=== PATIENT | female | born 1980 | race African-American/Black ===

== ENCOUNTER 2016-07-19 13:59 | Emergency (ER) | payer MEDICAID ==
[~2016-07-19] VITALS: Ht 165.1 cm; Wt 98.0 kg
[2016-07-19 14:02] VITALS: BP 149/79; PULSE 101; RESP 18; TEMP 98.2; O2SAT 97
== END 2016-07-19 18:50 | disposition left against medical advice (07) ==
LOC: NED 13:59
DX: R10.9 Unspecified abdominal pain (principal)
CPT/HCPCS: 99281

== ENCOUNTER 2016-09-06 15:49 | Emergency (ER) | payer MEDICAID ==
[~2016-09-06] VITALS: Ht 165.1 cm; Wt 97.7 kg
[2016-09-06 15:50] VITALS: BP 142/82; PULSE 84; RESP 20; TEMP 97.7; O2SAT 97
[2016-09-06] MEDS ORDERED: METO25TA3 PO (17:00)
[2016-09-06] MEDS ORDERED: PREN29TA PO (17:00)
--- NOTE | 2016-09-06 17:22 | PD ---
HPI Chief Complaint: Abdominal Pain Time Seen by Provider: 17:19 Travel History International Travel<30 days: No Contact w/Intl Traveler<30days: No Traveled to known affect area: No History of Present Illness HPI 36 year-old female history of hypertension, gastric bypass in 2008, presents to emergency department for evaluation right upper quadrant pain. Patient is approximately 11 weeks . She is followed by Dr. lAeman. Began having right upper quadrant pain yesterday with significant nausea and frequent vomiting. There is no mike red blood or coffee-ground emesis. Patient does have history of cholelithiasis. Denies any lower abdominal pain. No abdominal cramping or vaginal bleeding. She has had no fever or chills. No other symptoms to report. PFSH Past Medical History Cardiovascular Problems: Yes (HTN ) Diminished Hearing: No Gastrointestinal Disorders: No Hypertension: Yes (history ) Implanted Vascular Access Dvce: No Respiratory: Yes Immunizations Current: Yes Sleep Apnea: Yes (SLEEP APNEA) Tetanus Vaccination: < 5 Years ?: LMP: 06/21/16 : 1 Para: 1 Past Surgical History Abdominal Surgery: Yes (GASTRIC BYPASS-NOVEMBER 2008) Section: Yes (X 1) Social History Alcohol Use: No Tobacco Use: No Substance Use: No Allergies-Medications (Allergen,Severity, Reaction): Coded Allergies: Aspirin (Verified Adverse Reaction, Severe, CAN'T TAKE BECAUSE GASTRIC BYPASS, 09/06/16) STATES SHE CAN'T TAKE ASPIRIN SINCE SHE HAD GASTRIC BYPASS IN 2008. *MDRO Multi-Drug Resistant Organism (Verified Adverse Reaction, Unknown, ) MRSA Reported Meds & Prescriptions Reported Meds & Active Scripts Active Reported Metoprolol Tartrate 25 Mg Tab 25 Mg PO DAILY Plus Iron 29-1 mg ( Vit-Iron Carbonyl) 1 Tab Tab 1 Tab PO DAILY Review of Systems Except as stated in HPI: all other systems reviewed are Neg Physical Exam Narrative GENERAL: Well-nourished female patient, ambulatory and in no acute distress SKIN: Warm and dry. HEAD: Atraumatic. Normocephalic. EYES: Pupils equal and round. No scleral icterus. No injection or drainage. ENT: No nasal bleeding or discharge. Mucous membranes pink and moist. NECK: Trachea midline. No JVD. CARDIOVASCULAR: Regular rate and rhythm. No murmur appreciated. RESPIRATORY: No accessory muscle use. Clear to auscultation. Breath sounds equal bilaterally. GASTROINTESTINAL: Abdomen soft, nondistended. Right upper quadrant and epigastric tenderness to palpation. Hepatic and splenic margins not palpable. MUSCULOSKELETAL: No obvious deformities. No clubbing. No cyanosis. No edema. NEUROLOGICAL: Awake and alert. No obvious cranial nerve deficits. Motor grossly within normal limits. Normal speech. PSYCHIATRIC: Appropriate mood and affect; insight and judgment normal. Data Data Last Documented VS Vital Signs Date Time Temp Pulse Resp B/P Pulse Ox O2 Delivery O2 Flow Rate FiO2 09/06/16 17:20 18 09/06/16 15:50 97.7 84 142/82 97 Room Air Orders Beta Hcg (Quant/Titer) (09/06/16 17:14) Complete Blood Count With Diff (09/06/16 17:14) Comprehensive Metabolic Panel (09/06/16 17:14) Lipase (09/06/16 17:14) Prothrombin Time / Inr (Pt) (09/06/16 17:14) Act Partial Throm Time (Ptt) (09/06/16 17:14) Urinalysis - C+S If Indicated (09/06/16 17:14) Us Abdomen Gallbladder (09/06/16 ) Labs Laboratory Tests Test 09/06/16 09/06/16 17:20 17:30 Urine Color LIGHT-YELLOW Urine Turbidity CLEAR Urine pH 5.5 Urine Specific [place] 1.013 Urine Protein NEG mg/dL Urine Glucose (UA) NEG mg/dL Urine Ketones NEG mg/dL Urine Occult Blood MOD Urine Nitrite NEG Urine Bilirubin NEG Urine Urobilinogen LESS THAN 2.0 MG/DL Urine Leukocyte Esterase NEG Urine RBC 1 /hpf Urine WBC 1 /hpf Urine Squamous Epithelial 3 /hpf Cells Urine Bacteria RARE /hpf Urine Mucus FEW /lpf Microscopic Urinalysis Comment CULT NOT INDICATED White Blood Count 8.1 TH/MM3 Red Blood Count 4.97 MIL/MM3 Hemoglobin 12.3 GM/DL Hematocrit 36.4 % Mean Corpuscular Volume 73.2 FL Mean Corpuscular Hemoglobin 24.7 PG Mean Corpuscular Hemoglobin 33.7 % Concent Red Cell Distribution Width 17.3 % Platelet Count 182 TH/MM3 Mean Platelet Volume 8.7 FL Neutrophils (%) (Auto) 66.5 % Lymphocytes (%) (Auto) 23.0 % Monocytes (%) (Auto) 9.1 % Eosinophils (%) (Auto) 0.9 % Basophils (%) (Auto) 0.5 % Neutrophils # (Auto) 5.4 TH/MM3 Lymphocytes # (Auto) 1.9 TH/MM3 Monocytes # (Auto) 0.7 TH/MM3 Eosinophils # (Auto) 0.1 TH/MM3 Basophils # (Auto) 0.0 TH/MM3 CBC Comment AUTO DIFF Differential Comment AUTO DIFF CONFIRMED Prothrombin Time 10.1 SEC Prothromb Time International 0.9 RATIO Ratio Activated Partial 24.0 SEC Thromboplast Time Sodium Level 137 MEQ/L Potassium Level 4.0 MEQ/L Chloride Level 106 MEQ/L Carbon Dioxide Level 21.7 MEQ/L Anion Gap 9 MEQ/L Blood Urea Nitrogen 12 MG/DL Creatinine 0.83 MG/DL Estimat Glomerular Filtration 94 ML/MIN Rate Random Glucose 93 MG/DL Calcium Level 8.6 MG/DL Total Bilirubin LESS THAN 0.1 MG/DL Aspartate Amino Transf 21 U/L (AST/SGOT) Alanine Aminotransferase 39 U/L (ALT/SGPT) Alkaline Phosphatase 73 U/L Total Protein 7.5 GM/DL Albumin 3.3 GM/DL Lipase 178 U/L Human Chorionic Gonadotropin, 12220 MIU/ML Quant MDM Medical Decision Making Medical Screen Exam Complete: Yes Emergency Medical Condition: Yes Medical Record Reviewed: Yes Differential Diagnosis Cholecystitis versus cholelithiasis versus biliary colic versus muscle strain versus spasm versus gastritis Narrative Course 36 year-old female presents to emergency department for evaluation. Workup was initiated in triage. Once a medical bed becomes available, patient will be transferred and care assumed by the provider. Ultrasound was done out in triage. Condition: Stable Edel Olivarez Sep 06, 2016 17:22
[2016-09-06 17:39] LABS: AUTOMATED NEUTROPHIL # 5.4 TH/MM3 (1.8-7.7); BASOPHIL % 0.5 % (0.0-2.0); EOSINOPHIL # 0.1 TH/MM3 (0-0.4); EOSINOPHIL % 0.9 % (0.0-4.0); HEMATOCRIT 36.4 % (35.0-46.0); LYMPHOCYTE # 1.9 TH/MM3 (1.0-4.8); MEAN CELL VOLUME 73.2 FL (80.0-100.0); MEAN CORPUSCULAR HEMOGLOBIN 24.7 PG (27.0-34.0); MEAN CORPUSCULAR HGB CONC 33.7 % (32.0-36.0); MONO % 9.1 % (0.0-8.0); NEUT % 66.5 % (16.0-70.0); PLATELET COUNT 182 TH/MM3 (150-450); RED BLOOD COUNT 4.97 MIL/MM3 (4.00-5.30); RED CELL DISTRIBUTION WIDTH 17.3 % (11.6-17.2); WHITE BLOOD COUNT 8.1 TH/MM3 (4.0-11.0)
[2016-09-06 17:44] LABS: HEMO FLAGS AUTO DIFF
[2016-09-06 17:51] LABS: BACTERIA, URINE RARE /hpf; BLOOD, URINE MOD (NEG); GLUCOSE,URINE NEG (NEG); KETONE, URINE NEG (NEG); MUCUS URINE FEW /lpf (OCC); NITRITE,URINE NEG (NEG); PH, URINE 5.5 (5.0-8.5); SQUAMOUS EPITHELIAL CELL URINE 3 /hpf (0-5); URINE COLOR LIGHT-YELLOW (YELLW/STRAW)
[2016-09-06 17:52] LABS: COMMENT (UR) CULT NOT INDICATED; CULTURE IF INDICATED CULT NOT INDICATED
[2016-09-06 17:54] LABS: INTERNATIONAL NORMALIZED RATIO 0.9 RATIO; PROTHROMBIN TIME - PATIENT 10.1 SEC (9.8-11.6)
[2016-09-06 18:02] LABS: ANION GAP 9 MEQ/L (5-15); AST (GOT) 21 U/L (15-37); BICARBONATE 21.7 MEQ/L (21.0-32.0); BLOOD UREA NITROGEN 12 MG/DL (7-18); CHLORIDE 106 MEQ/L (98-107); GLOMERULAR FILTRATION RATE 94 ML/MIN (>89); SODIUM (NA) 137 MEQ/L (136-145)
[2016-09-06 18:19] LABS: ALKALINE PHOSPHATASE 73 U/L (45-117); ALT (GPT) 39 U/L (10-53); BETA HCG QUANT 62128 MIU/ML (0-5); TOTAL BILIRUBIN ADULT LESS THAN 0.1 MG/DL (0.2-1.0)
[2016-09-06 18:39] LABS: SCAN/DIFF AUTO DIFF CONFIRMED
[2016-09-06] MEDS ORDERED: ONDANSETRON HCL 4 MG/2 ML VIAL IV PUSH ONE (19:15)
[2016-09-06] MEDS ORDERED: SODIUM CHLOR 0.9% 1000 ML INJ 1,000 ML IV ONE (19:15)
--- NOTE | 2016-09-06 19:16 | RADRPT ---
EXAM DATE/TIME: 09/06/2016 18:08 [facility] COMPARISON: No previous studies available for comparison. INDICATIONS : Right upper quadrant pain. MEDICAL HISTORY : Hypertension. . SURGICAL HISTORY : Gastric bypass. ENCOUNTER: Initial ACUITY: > 1 year PAIN SCORE: 7/10 LOCATION: Right upper quadrant MEASUREMENTS: LIVER: 17.7 cm length COMMON DUCT: 6 mm RIGHT KIDNEY: 10.7 x 5.2 x 6.4 cm FINDINGS: LIVER: Upper limits of normal size and slightly increased echotexture. No focal hepatic lesions seen. No int rahepatic biliary distention. There is normal flow velocity and direction in the main portal vein. COMMON DUCT: No intraluminal mass or stone visualized. GALLBLADDER: Innumerable tiny, gravel-like stones are seen dependently within the gallbladder lumen. No gallbladde r wall thickening or pericholecystic fluid. PANCREAS: The visualized portions are within normal limits. RIGHT KIDNEY: There is a 13 mm upper pole cyst and a suspected 14 mm nonobstructing upper pole stone. CONCLUSION: 1. Cholelithiasis; innumerable tiny gravel-like stones within the gallbladder without evidence of cho lecystitis. No perceptible duct stone. No ductal dilatation. 2. Upper limits of normal size liver with mild fatty infiltration. 3. Small cyst of the right kidney and a possible nonobstructing stone of the right kidney. Kenton Harper MD on September 06, 2016 at 19:12 Board Certified Radiologist. This report was verified electronically.
--- NOTE | 2016-09-06 19:16 | PD ---
Physical Exam Date Seen by Provider: Sep 06, 2016 Time Seen by Provider: 19:13 Narrative The patient is a 36-year-old Carlie female who was initially evaluated by the mid-level provider. Please refer to the initial history, physical, diagnostic evaluation, and treatment modality plan. Data Data Last Documented VS Vital Signs Date Time Temp Pulse Resp B/P Pulse Ox O2 Delivery O2 Flow Rate FiO2 09/06/16 17:20 18 09/06/16 15:50 97.7 84 142/82 97 Room Air Orders Beta Hcg (Quant/Titer) (09/06/16 17:14) Complete Blood Count With Diff (09/06/16 17:14) Comprehensive Metabolic Panel (09/06/16 17:14) Lipase (09/06/16 17:14) Prothrombin Time / Inr (Pt) (09/06/16 17:14) Act Partial Throm Time (Ptt) (09/06/16 17:14) Urinalysis - C+S If Indicated (09/06/16 17:14) Us Abdomen Gallbladder (09/06/16 ) Sodium Chlor 0.9% 1000 Ml Inj (Ns 1000 M (09/06/16 19:15) Ondansetron Inj (Zofran Inj) (09/06/16 19:15) Ed Poc Ultrasound (09/06/16 ) Us Pelvis (Ques Pr/Ect)W Trans (09/06/16 ) Labs Laboratory Tests Test 09/06/16 09/06/16 17:20 17:30 Urine Color LIGHT-YELLOW Urine Turbidity CLEAR Urine pH 5.5 Urine Specific [place] 1.013 Urine Protein NEG mg/dL Urine Glucose (UA) NEG mg/dL Urine Ketones NEG mg/dL Urine Occult Blood MOD Urine Nitrite NEG Urine Bilirubin NEG Urine Urobilinogen LESS THAN 2.0 MG/DL Urine Leukocyte Esterase NEG Urine RBC 1 /hpf Urine WBC 1 /hpf Urine Squamous Epithelial 3 /hpf Cells Urine Bacteria RARE /hpf Urine Mucus FEW /lpf Microscopic Urinalysis Comment CULT NOT INDICATED White Blood Count 8.1 TH/MM3 Red Blood Count 4.97 MIL/MM3 Hemoglobin 12.3 GM/DL Hematocrit 36.4 % Mean Corpuscular Volume 73.2 FL Mean Corpuscular Hemoglobin 24.7 PG Mean Corpuscular Hemoglobin 33.7 % Concent Red Cell Distribution Width 17.3 % Platelet Count 182 TH/MM3 Mean Platelet Volume 8.7 FL Neutrophils (%) (Auto) 66.5 % Lymphocytes (%) (Auto) 23.0 % Monocytes (%) (Auto) 9.1 % Eosinophils (%) (Auto) 0.9 % Basophils (%) (Auto) 0.5 % Neutrophils # (Auto) 5.4 TH/MM3 Lymphocytes # (Auto) 1.9 TH/MM3 Monocytes # (Auto) 0.7 TH/MM3 Eosinophils # (Auto) 0.1 TH/MM3 Basophils # (Auto) 0.0 TH/MM3 CBC Comment AUTO DIFF Differential Comment AUTO DIFF CONFIRMED Prothrombin Time 10.1 SEC Prothromb Time International 0.9 RATIO Ratio Activated Partial 24.0 SEC Thromboplast Time Sodium Level 137 MEQ/L Potassium Level 4.0 MEQ/L Chloride Level 106 MEQ/L Carbon Dioxide Level 21.7 MEQ/L Anion Gap 9 MEQ/L Blood Urea Nitrogen 12 MG/DL Creatinine 0.83 MG/DL Estimat Glomerular Filtration 94 ML/MIN Rate Random Glucose 93 MG/DL Calcium Level 8.6 MG/DL Total Bilirubin LESS THAN 0.1 MG/DL Aspartate Amino Transf 21 U/L (AST/SGOT) Alanine Aminotransferase 39 U/L (ALT/SGPT) Alkaline Phosphatase 73 U/L Total Protein 7.5 GM/DL Albumin 3.3 GM/DL Lipase 178 U/L Human Chorionic Gonadotropin, 454[address] MIU/ML Quant MDM Medical Record Reviewed: Yes Supervised Visit with ALBAN: Yes Interpretation(s) Laboratory Tests Test 09/06/16 09/06/16 17:20 17:30 Urine Color LIGHT-YELLOW Urine Turbidity CLEAR Urine pH 5.5 Urine Specific [place] 1.013 Urine Protein NEG mg/dL Urine Glucose (UA) NEG mg/dL Urine Ketones NEG mg/dL Urine Occult Blood MOD Urine Nitrite NEG Urine Bilirubin NEG Urine Urobilinogen LESS THAN 2.0 MG/DL Urine Leukocyte Esterase NEG Urine RBC 1 /hpf Urine WBC 1 /hpf Urine Squamous Epithelial 3 /hpf Cells Urine Bacteria RARE /hpf Urine Mucus FEW /lpf Microscopic Urinalysis Comment CULT NOT INDICATED White Blood Count 8.1 TH/MM3 Red Blood Count 4.97 MIL/MM3 Hemoglobin 12.3 GM/DL Hematocrit 36.4 % Mean Corpuscular Volume 73.2 FL Mean Corpuscular Hemoglobin 24.7 PG Mean Corpuscular Hemoglobin 33.7 % Concent Red Cell Distribution Width 17.3 % Platelet Count 182 TH/MM3 Mean Platelet Volume 8.7 FL Neutrophils (%) (Auto) 66.5 % Lymphocytes (%) (Auto) 23.0 % Monocytes (%) (Auto) 9.1 % Eosinophils (%) (Auto) 0.9 % Basophils (%) (Auto) 0.5 % Neutrophils # (Auto) 5.4 TH/MM3 Lymphocytes # (Auto) 1.9 TH/MM3 Monocytes # (Auto) 0.7 TH/MM3 Eosinophils # (Auto) 0.1 TH/MM3 Basophils # (Auto) 0.0 TH/MM3 CBC Comment AUTO DIFF Differential Comment AUTO DIFF CONFIRMED Prothrombin Time 10.1 SEC Prothromb Time International 0.9 RATIO Ratio Activated Partial 24.0 SEC Thromboplast Time Sodium Level 137 MEQ/L Potassium Level 4.0 MEQ/L Chloride Level 106 MEQ/L Carbon Dioxide Level 21.7 MEQ/L Anion Gap 9 MEQ/L Blood Urea Nitrogen 12 MG/DL Creatinine 0.83 MG/DL Estimat Glomerular Filtration 94 ML/MIN Rate Random Glucose 93 MG/DL Calcium Level 8.6 MG/DL Total Bilirubin LESS THAN 0.1 MG/DL Aspartate Amino Transf 21 U/L (AST/SGOT) Alanine Aminotransferase 39 U/L (ALT/SGPT) Alkaline Phosphatase 73 U/L Total Protein 7.5 GM/DL Albumin 3.3 GM/DL Lipase 178 U/L Human Chorionic Gonadotropin, 178[address] MIU/ML Quant Last Impressions Pelvis Ultrasound 09/06/16 0000 Signed Impressions: Service Date/Time: Tuesday, September 06, 2016 20:48 - CONCLUSION: Single, viable intrauterine as above. No acute complication demonstrated. Kenton Harper MD Gall Bladder Ultrasound 09/06/16 0000 Signed Impressions: Service Date/Time: Tuesday, September 06, 2016 18:08 - CONCLUSION: 1. Cholelithiasis; innumerable tiny gravel-like stones within the gallbladder without evidence of cholecystitis. No perceptible duct stone. No ductal dilatation. 2. Upper limits of normal size liver with mild fatty infiltration. 3. Small cyst of the right kidney and a possible nonobstructing stone of the right kidney. Kenton Harper MD Differential Diagnosis Differential diagnosis includes acute cholecystitis, biliary colic, choledocholithiasis, pancreatitis, gastritis, peptic ulcer disease, hyperemesis gravidarum. Narrative Course I, Dr. Bledsoe, have reviewed the advance practice practitioner's documentation and am in agreement, met with the patient face to face, made the diagnosis, and the medical decision making was done by me. *My assessment and Findings: 36-year-old Car[place] female was initially evaluated by the mid-level provider. Please refer to the initial history, physical, diagnostic evaluation, treatment modality plan. The patient is , currently living weeks , or any evaluated by her cask maker, Dr. Aleman. The patient notes her last several days she's had right upper quadrant and epigastric abdominal pain with nausea and vomiting, dry heaves. The patient does have a history of cholelithiasis. The patient does complain of postprandial symptoms and reflux type symptoms. She denies any lower abdominal pain, dysuria, frequent, urgency, vaginal discharge, or vaginal bleeding. The patient did have postcoital vaginal spotting 3 weeks ago, was advised that was normal per her physician. She denies any lower abdominal symptoms currently. The patient had laboratory evaluation was unremarkable. The patient was administered IV fluids and Zofran, declined pain medication secondary to . Ultrasound was ordered by the previous mid-level provider to evaluate for possible acute cholecystitis. The patient's white count is unremarkable. LFTs and lipase are normal. UA reveals blood, otherwise unremarkable. I did review the patient's EMR, she had blood work performed on August 14, 2010 which revealed she has a positive, therefore, no indication for RhoGAM. Ultrasound reveals cholelithiasis, no evidence for acute cholecystitis. However, the patient then went to use the restroom and when she wiped she felt some lower abdominal cramping and pain. Therefore, bedside ultrasound was performed which reveals IUP, however, is unable to visualize heart tones on bedside ultrasound secondary to bowel interference. Therefore, the patient requested a formal ultrasound. Formal ultrasound to evaluate for viability was obtained. Formal ultrasound reveals IUP with positive heart is. The patient is stable for outpatient follow-up. I will prescribe Zofran as needed. She is advised to follow-up with her primary physician and/or cask maker if symptoms persist she may have biliary colic. Diagnosis Primary Impression: Abdominal pain during Qualified Code: O26.891 - Abdominal pain during , first trimester Additional Impression: Cholelithiasis affecting in first trimester, antepartum Patient Instructions: General Instructions Additional Instruction: Please provide a patient a copy of her labs and ultrasound results at discharge. Zofran as directed. Follow-up with her primary physician and cask maker. Return if symptoms worsen or progress. Med/Other Pt SpecificInfo: Prescription(s) given Scripts Ondansetron Odt (Zofran Odt)4 Mg Tab4 Mg SL Q6HR PRN (Nausea/Vomiting) #10 TAB Ref 0 Prov:Hank Bledsoe MD 09/06/16 Disposition: 01 DISCHARGE HOME Condition: Stable Hank Bledsoe MD Sep 06, 2016 19:16
--- NOTE | 2016-09-06 21:43 | RADRPT ---
EXAM DATE/TIME: 09/06/2016 20:48 [facility] COMPARISON: No previous studies available for comparison. INDICATIONS : Pelvic pain. LAB(S): Beta-hC MEDICAL HISTORY : . Hypertension. SURGICAL HISTORY : Gastric bypass. ENCOUNTER: Initial ACUITY: 1 day PAIN SCORE: 5/10 LOCATION: Bilateral pelvis MEASUREMENTS: UTERUS: 13.0 x 7.3 x 8.0 cm ENDOMETRIAL STRIPE: >20 mm RIGHT OVARY: 3.7 x 2.1 x 1.3 cm LEFT OVARY: not visualized FINDINGS: UTERUS: Gestational sac, yolk sac and pole seen within the uterine cavity. [place]-rump length 4.77 cm wh ich corresponds to a gestational age of 11 weeks 4 days. heart tones are demonstrated. RIGHT OVARY: Ovary contains no mass or significant cystic lesion. LEFT OVARY: Ovary contains no mass or significant cystic lesion. MISCELLANEOUS: No free fluid. CONCLUSION: Single, viable intrauterine as above. No acute complication demonstrated. Kenton Harper MD on September 06, 2016 at 21:41 Board Certified Radiologist. This report was verified electronically.
[2016-09-06] MEDS ORDERED: ZOFR4TAB3 SL (21:53)
== END 2016-09-06 22:26 | disposition home or self-care (01) ==
LOC: NETRI 15:49 → NEPE 22:26
DX: O26.891 Other specified pregnancy related conditions, first trimester (principal); K80.20 Calculus of gallbladder without cholecystitis without obstruction; Z3A.11 11 weeks gestation of pregnancy
CPT/HCPCS: 76700; 76705; 76817; 80053; 81001; 83690; 84702; 85025; 85610; 85730; 96374; 99284; J2405; J7030

== ENCOUNTER 2017-02-05 09:30 | Observation (INO) | payer MEDICAID ==
[~2017-02-05] VITALS: Ht 167.6 cm; Wt 120.0 kg
[~2017-02-05 09:30] MED LIST: METO25TA3 PO; PREN29TA PO; ZOFR4TAB3 SL
[2017-02-05 09:32] VITALS: BP 135/90; PULSE 126; RESP 28; TEMP 99.4; O2SAT 98
[2017-02-05] MEDS ORDERED: SODIUM CHLOR 0.9% 1000 ML INJ 1,000 ML IV ONE (10:00)
[2017-02-05] MEDS ORDERED: SODIUM CHLORIDE 0.9% FLUSH 10 ML FLUSH IVF PRN (10:00)
[2017-02-05] MEDS ORDERED: ACETAMINOPHEN 325 MG TAB PO ONE (10:00)
[2017-02-05 10:01] VITALS: O2SAT 100
--- NOTE | 2017-02-05 10:08 | PD ---
HPI Chief Complaint: Chest Pain Time Seen by Provider: 09:48 Travel History International Travel<30 days: No Contact w/Intl Traveler<30days: No Traveled to known affect area: No History of Present Illness HPI Patient is a 36-year-old with history of hypertension and who is also 7-months , presents to emergency room with her chest pain. Patient reports that around 6:10 AM, she began to have increased heaviness to her chest. Reports that pain is located to her epigastrium. Reports that the headache is associated with shortness of breath, denies any diaphoresis or nausea or vomiting. Patient reports that chest pain does radiate to her back, reports that she is unable to keep breath with this chest pain. Patient reports that she has never had chest pain the past, reports concern as her sister had history of a heart attack at age 31. Patient's underground drill operator is Dr. Singh with [place] [facility] Past Medical History Cardiovascular Problems: Yes (HTN ) Diminished Hearing: No Gastrointestinal Disorders: No Hypertension: Yes (history ) Implanted Vascular Access Dvce: No Respiratory: Yes Immunizations Current: Yes Sleep Apnea: Yes (SLEEP APNEA) ?: LMP: 05/2016 : 1 Para: 1 Past Surgical History Abdominal Surgery: Yes (GASTRIC BYPASS-NOVEMBER 2008) Section: Yes (X 1) Social History Alcohol Use: No Tobacco Use: No Substance Use: No Allergies-Medications (Allergen,Severity, Reaction): Coded Allergies: Aspirin (Verified Adverse Reaction, Severe, CAN'T TAKE BECAUSE GASTRIC BYPASS, 09/06/16) STATES SHE CAN'T TAKE ASPIRIN SINCE SHE HAD GASTRIC BYPASS IN 2008. *MDRO Multi-Drug Resistant Organism (Verified Adverse Reaction, Unknown, ) MRSA Reported Meds & Prescriptions Reported Meds & Active Scripts Active Zofran Odt (Ondansetron Odt) 4 Mg Tab 4 Mg SL Q6HR PRN Reported Metoprolol Tartrate 25 Mg Tab 25 Mg PO DAILY Plus Iron 29-1 mg ( Vit-Iron Carbonyl) 1 Tab Tab 1 Tab PO DAILY Review of Systems General / Constitutional: No: Fever Eyes: No: Visual changes HENT: No: Headaches Cardiovascular: Positive: Chest Pain or Discomfort, Tachycardia, No: Diaphoresis Respiratory: Positive: Shortness of Breath Gastrointestinal: No: Nausea, Vomiting, Abdominal Pain Genitourinary: No: Dysuria Musculoskeletal: No: Pain Skin: No Rash Neurologic: No: Weakness Psychiatric: No: Depression Endocrine: No: Polydipsia Hematologic/Lymphatic: No: Easy Bruising Physical Exam Narrative GENERAL: Moderate distress SKIN: Focused skin assessment warm/dry. HEAD: Atraumatic. Normocephalic. EYES: Pupils equal and round. No scleral icterus. No injection or drainage. ENT: No nasal bleeding or discharge. Mucous membranes pink and moist. NECK: Trachea midline. No JVD. CARDIOVASCULAR: Tachycardic. No murmur appreciated. RESPIRATORY: No accessory muscle use. Clear to auscultation. Breath sounds equal bilaterally. GASTROINTESTINAL: Gravid abdomen, Abdomen soft, non-tender, Hepatic and splenic margins not palpable. MUSCULOSKELETAL: No obvious deformities. No clubbing. No cyanosis. No edema. NEUROLOGICAL: Awake and alert. No obvious cranial nerve deficits. Motor grossly within normal limits. Normal speech. PSYCHIATRIC: Appropriate mood and affect; insight and judgment normal. Data Data Last Documented VS Vital Signs Date Time Temp Pulse Resp B/P Pulse Ox O2 Delivery O2 Flow Rate FiO2 02/05/17 15:11 103 16 144/89 98 02/05/17 12:10 Room Air 02/05/17 09:32 99.4 Orders Electrocardiogram (02/05/17 ) B-Type Natriuretic Peptide (02/05/17 09:57) Ckmb (Isoenzyme) Profile (02/05/17 09:57) Complete Blood Count With Diff (02/05/17 09:57) Comprehensive Metabolic Panel (02/05/17 09:57) Magnesium (Mg) (02/05/17 09:57) Prothrombin Time / Inr (Pt) (02/05/17 09:57) Act Partial Throm Time (Ptt) (02/05/17 09:57) Troponin I (02/05/17 09:57) Lipase (02/05/17 09:57) Chest, Single Ap (02/05/17 09:57) Ecg Monitoring (02/05/17 09:57) Iv Access Insert/Monitor (02/05/17 09:57) Oximetry (02/05/17 09:57) Sodium Chloride 0.9% Flush (Ns Flush) (02/05/17 10:00) Urinalysis - C+S If Indicated (02/05/17 09:57) Sodium Chlor 0.9% 1000 Ml Inj (Ns 1000 M (02/05/17 10:00) Acetaminophen (Tylenol) (02/05/17 10:00) Bilateral Bp Monitoring (02/05/17 09:57) Us Leg Venous Doppler Bilat (02/05/17 ) CKMB (02/05/17 10:15) CKMB% (02/05/17 10:15) Us Abdomen Pancreas (02/05/17 ) Ckmb (Isoenzyme) Profile (02/05/17 12:44) Troponin I (02/05/17 12:44) Lung Scan - Perfusion (02/05/17 ) Mri Mrcp W/O Contrast (02/05/17 ) Admit Order (Ed Use Only) (02/05/17 16:35) Labs Laboratory Tests Test 02/05/17 02/05/17 02/05/17 10:15 12:10 13:20 White Blood Count 4.9 TH/MM3 Red Blood Count 4.82 MIL/MM3 Hemoglobin 12.5 GM/DL Hematocrit 37.2 % Mean Corpuscular Volume 77.1 FL Mean Corpuscular Hemoglobin 25.9 PG Mean Corpuscular Hemoglobin 33.6 % Concent Red Cell Distribution Width 14.3 % Platelet Count 101 TH/MM3 Mean Platelet Volume 9.4 FL Neutrophils (%) (Auto) 73.5 % Lymphocytes (%) (Auto) 15.2 % Monocytes (%) (Auto) 10.6 % Eosinophils (%) (Auto) 0.2 % Basophils (%) (Auto) 0.5 % Neutrophils # (Auto) 3.6 TH/MM3 Lymphocytes # (Auto) 0.7 TH/MM3 Monocytes # (Auto) 0.5 TH/MM3 Eosinophils # (Auto) 0.0 TH/MM3 Basophils # (Auto) 0.0 TH/MM3 CBC Comment DIFF FINAL Differential Comment Prothrombin Time 9.7 SEC Prothromb Time International 0.9 RATIO Ratio Activated Partial 28.2 SEC Thromboplast Time Sodium Level 137 MEQ/L Potassium Level 4.1 MEQ/L Chloride Level 108 MEQ/L Carbon Dioxide Level 18.4 MEQ/L Anion Gap 11 MEQ/L Blood Urea Nitrogen 5 MG/DL Creatinine 0.71 MG/DL Estimat Glomerular Filtration 113 ML/MIN Rate Random Glucose 91 MG/DL Calcium Level 8.3 MG/DL Magnesium Level 1.8 MG/DL Total Bilirubin 0.8 MG/DL Aspartate Amino Transf 177 U/L (AST/SGOT) Alanine Aminotransferase 190 U/L (ALT/SGPT) Alkaline Phosphatase 252 U/L Total Creatine Kinase 116 U/L 110 U/L Creatine Kinase MB 0.8 NG/ML Troponin I LESS THAN 0.02 0.02 NG/ML NG/ML Total Protein 6.7 GM/DL Albumin 2.6 GM/DL Lipase GREATER THAN 81472 U/L Urine Color YELLOW Urine Turbidity CLEAR Urine pH 6.0 Urine Specific [place] 1.014 Urine Protein TRACE mg/dL Urine Glucose (UA) NEG mg/dL Urine Ketones 40 mg/dL Urine Occult Blood NEG Urine Nitrite NEG Urine Bilirubin SMALL Urine Urobilinogen 4.0 MG/DL Urine Leukocyte Esterase NEG Urine RBC LESS THAN 1 /hpf Urine WBC 1 /hpf Urine Squamous Epithelial 2 /hpf Cells Urine Bacteria RARE /hpf Microscopic Urinalysis Comment CULT NOT INDICATED MDM Medical Decision Making Medical Screen Exam Complete: Yes Emergency Medical Condition: Yes Interpretation(s) EKG at 0952: Sinus tachycardia at 110 beats minute, QT/QTc 296/361, no acute st or t wave changes Vital Signs Date Time Temp Pulse Resp B/P Pulse Ox O2 Delivery O2 Flow Rate FiO2 02/05/17 09:58 98 Room Air 02/05/17 09:32 99.4 126 28 135/90 98 Room Air Differential Diagnosis Differential includes ACS, arrhythmia, PE, electrolyte abnormality, pneumothorax , aortic dissection Narrative Course 36-year-old female who presents in the emergency with complaints of chest pain. Patient was placed on a autism motor specialist upon arrival to the emergency room. EKG shows sinus tachycardia at 110 bpm, she is 7 months complaining of pleuritic-type, chest pain with shortness of breath. Plan to obtain lab work including x-ray chest, will give her Tylenol for her pain as nitroglycerin may cause bradycardia as well as decelerations. Plan to obtain labs including cardiac enzymes. Patient's chest pain could be due to a PE, plan to US legs to evaluate for possible DVT - if positive, then high clinical suspicion for PE Laboratory Tests Test 02/05/17 10:15 White Blood Count 4.9 TH/MM3 (4.0-11.0) Red Blood Count 4.82 MIL/MM3 (4.00-5.30) Hemoglobin 12.5 GM/DL (11.6-15.3) Hematocrit 37.2 % (35.0-46.0) Mean Corpuscular Volume 77.1 FL (80.0-100.0) Mean Corpuscular Hemoglobin 25.9 PG (27.0-34.0) Mean Corpuscular Hemoglobin 33.6 % Concent (32.0-36.0) Red Cell Distribution Width 14.3 % (11.6-17.2) Platelet Count 101 TH/MM3 (150-450) Mean Platelet Volume 9.4 FL (7.0-11.0) Neutrophils (%) (Auto) 73.5 % (16.0-70.0) Lymphocytes (%) (Auto) 15.2 % (9.0-44.0) Monocytes (%) (Auto) 10.6 % (0.0-8.0) Eosinophils (%) (Auto) 0.2 % (0.0-4.0) Basophils (%) (Auto) 0.5 % (0.0-2.0) Neutrophils # (Auto) 3.6 TH/MM3 (1.8-7.7) Lymphocytes # (Auto) 0.7 TH/MM3 (1.0-4.8) Monocytes # (Auto) 0.5 TH/MM3 (0-0.9) Eosinophils # (Auto) 0.0 TH/MM3 (0-0.4) Basophils # (Auto) 0.0 TH/MM3 (0-0.2) CBC Comment DIFF FINAL Differential Comment Prothrombin Time 9.7 SEC (9.8-11.6) Prothromb Time International 0.9 RATIO Ratio Activated Partial 28.2 SEC Thromboplast Time (24.3-30.1) Sodium Level 137 MEQ/L (136-145) Potassium Level 4.1 MEQ/L (3.5-5.1) Chloride Level 108 MEQ/L (98-107) Carbon Dioxide Level 18.4 MEQ/L (21.0-32.0) Anion Gap 11 MEQ/L (5-15) Blood Urea Nitrogen 5 MG/DL (7-18) Creatinine 0.71 MG/DL (0.50-1.00) Estimat Glomerular Filtration 113 ML/MIN Rate (>89) Random Glucose 91 MG/DL (74-106) Calcium Level 8.3 MG/DL (8.5-10.1) Magnesium Level 1.8 MG/DL (1.5-2.5) Total Bilirubin 0.8 MG/DL (0.2-1.0) Aspartate Amino Transf 177 U/L (15-37) (AST/SGOT) Alanine Aminotransferase 190 U/L (10-53) (ALT/SGPT) Alkaline Phosphatase 252 U/L (45-117) Total Creatine Kinase 116 U/L (26-192) Creatine Kinase MB 0.8 NG/ML (0.5-3.6) Troponin I LESS THAN 0.02 NG/ML (0.02-0.05) Total Protein 6.7 GM/DL (6.4-8.2) Albumin 2.6 GM/DL (3.4-5.0) Lipase GREATER THAN 45435 U/L (73-393) Vital Signs Date Time Temp Pulse Resp B/P Pulse Ox O2 Delivery O2 Flow Rate FiO2 02/05/17 10:01 100 02/05/17 09:58 98 Room Air 02/05/17 09:32 99.4 126 28 135/90 98 Room Air Lipase >30,000 AST 177, ALT: 190, RUQ us ordered to evaluate pancreas and gall bladder. Patient's pain is located to her epigastrium, I do not believe the patient is having cardiac chest pain at this time. Discussed concerns for gallstone pancreatitis with patient, she will require admission to the hospital. Medicine service will not take patients on their service as patient is 7months , call made to ob Case reviewed with Dr Mitchell, with ob, request CTA to rule out PE given her symptoms of chest pain/sob. Concern as there is no tele beds on ob floor. I reviewed need for CTA to rule out PE with patient detail, patient agreeable to study. Case reviewed with radiologist - request vq first prior to cta , VQ ordered Last Impressions Chest X-Ray 02/05/17 0957 Signed Impressions: Service Date/Time: Sunday, February 05, 2017 10:00 - CONCLUSION: Normal examination. Mauricio Garcia Jr., MD Pancreas Ultrasound 02/05/17 0000 Signed Impressions: Service Date/Time: Sunday, February 05, 2017 11:46 - CONCLUSION: 1. Mild hepatic steatosis. 2. Cholelithiasis without sonographic evidence to suggest acute cholecystitis. 3. Common bile duct is just out of the range of normal measuring 6 mm. I cannot exclude choledocholithiasis. I see no appreciable intrahepatic biliary dilatation. MRCP could be considered to further evaluate. 4. Either non-shadowing stone or focus of fat associated with the upper pole of the right kidney. Mauricio Garcia Jr., MD Lower Extremity Ultrasound 02/05/17 0000 Signed Impressions: Service Date/Time: Sunday, February 05, 2017 10:57 - CONCLUSION: No evidence of deep venous thrombosis within the lower extremities. Elton Garcia MD US of pancreas shows cholelithiasis without any sonographic evidence to suggest acute cholecystitis. Her common bile duct measures 6 mm, cannot rule out choledocholithiasis. Patient will require MRCP possibly ERCP. Call made to GI. case reviewed with GI, Dr. Ramirez - request MRCP and IV hydration and admission to hospital Second set of troponins negative, VQ with low prob for pe Patient most likely symptomatic due to choledocholithiasis with obstruction Case reviewed Dr. Mitchell who accepts patient to service. Critical Care Narrative Aggregate critical care time was 30 minutes. Time to perform other separately billable procedures was not included in the critical care time. My time did not include minutes spent treating any other patients simultaneously or on activities that did not directly contribute to the patient's treatment. The services I provided to this patient were to treat and/or prevent clinically significant deterioration that could result in: , decompensation, deterioration I provided critical care services requiring my management, as noted below: Chart data review, documentation time, medication orders and management, vital sign assessments/reviewing monitor data, ordering and reviewing lab tests, ordering and interpreting/reviewing x-rays and diagnostic studies, care of the patient and discussion of the patient with the admitting physicians. Diagnosis Primary Impression: Pancreatitis, acute Qualified Code: K85.90 - Acute pancreatitis, unspecified complication status, unspecified pancreatitis type Additional Impression: Choledocholithiasis with obstruction Admitting Information Admitting Physician Requests: Lauren Alcala DO Feb 05, 2017 10:08
--- NOTE | 2017-02-05 10:13 | RADRPT ---
EXAM DATE/TIME: 02/05/2017 10:00 [facility] COMPARISON: CHEST SINGLE AP, February 05, 2016, 17:50. INDICATIONS : Short of breath, chest pain. MEDICAL HISTORY : allergies SURGICAL HISTORY : None. ENCOUNTER: Initial ACUITY: 1 day PAIN SCORE: 9/10 LOCATION: Bilateral cranial FINDINGS: A single view of the chest demonstrates the lungs to be symmetrically aerated without evidence of mas s, infiltrate or effusion. The cardiomediastinal contours are unremarkable. Osseous structures are intact. CONCLUSION: Normal examination. Mauricio Garcia Jr., MD on February 05, 2017 at 10:12 Board Certified Radiologist. This report was verified electronically.
[2017-02-05 10:38] LABS: AUTOMATED NEUTROPHIL # 3.6 TH/MM3 (1.8-7.7); BASOPHIL % 0.5 % (0.0-2.0); EOSINOPHIL % 0.2 % (0.0-4.0); HEMATOCRIT 37.2 % (35.0-46.0); HEMO FLAGS DIFF FINAL; LYMPH % 15.2 % (9.0-44.0); LYMPHOCYTE # 0.7 TH/MM3 (1.0-4.8); MEAN CELL VOLUME 77.1 FL (80.0-100.0); MEAN CORPUSCULAR HEMOGLOBIN 25.9 PG (27.0-34.0); MEAN CORPUSCULAR HGB CONC 33.6 % (32.0-36.0); MONO % 10.6 % (0.0-8.0); NEUT % 73.5 % (16.0-70.0); PLATELET COUNT 101 TH/MM3 (150-450); RED BLOOD COUNT 4.82 MIL/MM3 (4.00-5.30); RED CELL DISTRIBUTION WIDTH 14.3 % (11.6-17.2); WHITE BLOOD COUNT 4.9 TH/MM3 (4.0-11.0)
[2017-02-05 10:46] LABS: APTT (PATIENT) 28.2 SEC (24.3-30.1); INTERNATIONAL NORMALIZED RATIO 0.9 RATIO; PROTHROMBIN TIME - PATIENT 9.7 SEC (9.8-11.6)
[2017-02-05 10:58] LABS: ALT (GPT) 190 U/L (10-53); ANION GAP 11 MEQ/L (5-15); AST (GOT) 177 U/L (15-37); BICARBONATE 18.4 MEQ/L (21.0-32.0); BLOOD UREA NITROGEN 5 MG/DL (7-18); CHLORIDE 108 MEQ/L (98-107); GLOMERULAR FILTRATION RATE 113 ML/MIN (>89); MAGNESIUM 1.8 MG/DL (1.5-2.5); POTASSIUM 4.1 MEQ/L (3.5-5.1); SODIUM (NA) 137 MEQ/L (136-145)
[2017-02-05 11:03] LABS: ALKALINE PHOSPHATASE 252 U/L (45-117); CREATINE KINASE 116 U/L (26-192); TOTAL BILIRUBIN ADULT 0.8 MG/DL (0.2-1.0)
[2017-02-05 11:21] LABS: CKMB 0.8 NG/ML (0.5-3.6)
[2017-02-05 12:10] VITALS: BP 142/73; PULSE 103; RESP 16; O2SAT 97
--- NOTE | 2017-02-05 12:43 | RADRPT ---
EXAM DATE/TIME: 02/05/2017 10:57 [facility] COMPARISON: No previous studies available for comparison. INDICATIONS : Bilateral leg swelling. Shortness of breath. MEDICAL HISTORY : Hypertension. Methicillin-resistant Staphylococcus aureus. Sleep apnea. SURGICAL HISTORY : section.Gastric bypass. ENCOUNTER: Initial ACUITY: 3 days PAIN SCORE: 4/10 LOCATION: Bilateral legs. TECHNIQUE: Venous ultrasound of the left and right leg was performed from the inguinal ligament to the proximal calf. Real-time, color Doppler and spectral tracing, compression and augmentation techniques were us ed. FINDINGS: RIGHT LEG: There is normal compressibility of the deep venous system from the inguinal region to the proximal ca lf. No echogenic clot is seen in the lumen of the common femoral, femoral, popliteal, and posterior tibial veins. There is a normal response of the venous system to proximal and distal augmentation an d respiration. LEFT LEG: There is normal compressibility of the deep venous system from the inguinal region to the proximal ca lf. No echogenic clot is seen in the lumen of the common femoral, femoral, popliteal, and posterior tibial veins. There is a normal response of the venous system to proximal and distal augmentation an d respiration. CONCLUSION: No evidence of deep venous thrombosis within the lower extremities. Elton Garcia MD on February 05, 2017 at 12:41 Board Certified Radiologist. This report was verified electronically.
--- NOTE | 2017-02-05 12:56 | RADRPT ---
EXAM DATE/TIME: 02/05/2017 11:46 [facility] COMPARISON: CT PULMONARY ANGIOGRAM, February 05, 2016, 18:55. INDICATIONS : Right upper quadrant pain. MEDICAL HISTORY : Methicillin-resistant Staphylococcus aureus. Hypertension. Sleep apnea. SURGICAL HISTORY : section. Gastric bypass. ENCOUNTER: Subsequent ACUITY: 3 days PAIN SCORE: 5/10 LOCATION: Right upper quadrant MEASUREMENTS: LIVER: 17.5 cm length COMMON DUCT: 6 mm RIGHT KIDNEY: 11.4 x 4.6 x 6.6 cm FINDINGS: LIVER: The liver is mildly echogenic. No mass or ductal dilatation. Hepatopedal flow within the portal vein. COMMON DUCT: No intraluminal mass or stone visualized. GALLBLADDER: Multiple small echogenic shadowing stones seen. Echogenic non-shadowing material consistent with slud ge also noted. Gallbladder wall is within the normal range in terms of thickness measuring 2 mm. No p ericholecystic fluid. PANCREAS: The visualized portions are within normal limits. Only portions of the pancreatic head are seen. The remaining portion of the gland is obscured by bowel gas. Right kidney: A 15 mm echogenic focus without shadowing is seen associated with the upper pole. A 13 mm simple cyst is seen within the upper pole. CONCLUSION: 1. Mild hepatic steatosis. 2. Cholelithiasis without sonographic evidence to suggest acute cholecystitis. 3. Common bile duct is just out of the range of normal measuring 6 mm. I cannot exclude choledocholit hiasis. I see no appreciable intrahepatic biliary dilatation. MRCP could be considered to further araceli luate. 4. Either non-shadowing stone or focus of fat associated with the upper pole of the right kidney. Mauricio Garcia Jr., MD on February 05, 2017 at 12:46 Board Certified Radiologist. This report was verified electronically.
[2017-02-05 13:53] LABS: BACTERIA, URINE RARE /hpf; BLOOD, URINE NEG (NEG); COMMENT (UR) CULT NOT INDICATED; CULTURE IF INDICATED CULT NOT INDICATED; GLUCOSE,URINE NEG (NEG); KETONE, URINE 40 mg/dL (NEG); NITRITE,URINE NEG (NEG); SQUAMOUS EPITHELIAL CELL URINE 2 /hpf (0-5); URINE COLOR YELLOW (YELLW/STRAW)
--- NOTE | 2017-02-05 14:39 | PD.CONS ---
HPI History of Present Illness This is a 36 year old female 7 months with hx HTN who presented to the ER with chest pain and feeling like she couldnt breathe. Onset this morning, indicates pain lower sternal/ epigastric area and radiate around to back on both sides. Pain constant with exacerbations. Moving makes pain worse. Never had this pain before. Admits nausea. Admits diarrhea yesterday No blood in stool. No vomiting. No dark tarry stools. Occasional acid reflux. Denies hx liver trouble, pancreatitis. US 02-05-17 shows CBD just out of normal range 6mm cannot exclude choledocholithiasis, no appreciable intrahepatic biliary dilatation, fatty liver, cholelithiasis no evidence acute cholecystitis; US 2016 also showed cholelithiasis. She was here in August when aforementioned US was done, denies every having trouble with gall bladder. She had EGD in 2008 for gastric surgery clearance, was done at [facility] [place]. (Laurie Weller) PFSH Past Medical History HTN Past Surgical History jose eduardo en y gastric bypass c section (Laurie Weller) Coded Allergies: Aspirin (Verified Adverse Reaction, Severe, CAN'T TAKE BECAUSE GASTRIC BYPASS, 09/06/16) STATES SHE CAN'T TAKE ASPIRIN SINCE SHE HAD GASTRIC BYPASS IN 2008. *MDRO Multi-Drug Resistant Organism (Verified Adverse Reaction, Unknown, ) MRSA Family History breast ca uterine ca Social History no ETOH no tobacco no illicit drug use (Laurie Weller) Review of Systems Constitutional: DENIES: Fever Ears, nose, mouth, throat: DENIES: Hearing loss Respiratory: DENIES: Cough Cardiovascular: COMPLAINS OF: Chest pain Gastrointestinal: COMPLAINS OF: Abdominal pain, Diarrhea, Nausea, DENIES: Black stools, Bloody stools, Constipation, Vomiting Genitourinary: DENIES: Hematuria Musculoskeletal: DENIES: Joint Swelling Integumentary: DENIES: Pruritus Neurologic: DENIES: Abnormal gait Psychiatric: DENIES: Confusion (Laurie Weller) GI Exam Vitals I&O Vital Signs Date Time Temp Pulse Resp B/P Pulse Ox O2 Delivery O2 Flow Rate FiO2 02/05/17 10:01 100 02/05/17 09:58 98 Room Air 02/05/17 09:32 99.4 126 28 135/90 98 Room Air Imaging Last 24 hours Impressions Chest X-Ray 02/05/17 0957 Signed Impressions: Service Date/Time: Sunday, February 05, 2017 10:00 - CONCLUSION: Normal examination. Mauricio Garcia Jr., MD Pancreas Ultrasound 02/05/17 0000 Signed Impressions: Service Date/Time: Sunday, February 05, 2017 11:46 - CONCLUSION: 1. Mild hepatic steatosis. 2. Cholelithiasis without sonographic evidence to suggest acute cholecystitis. 3. Common bile duct is just out of the range of normal measuring 6 mm. I cannot exclude choledocholithiasis. I see no appreciable intrahepatic biliary dilatation. MRCP could be considered to further evaluate. 4. Either non-shadowing stone or focus of fat associated with the upper pole of the right kidney. Mauricio Garcia Jr., MD Lower Extremity Ultrasound 02/05/17 0000 Signed Impressions: Service Date/Time: Sunday, February 05, 2017 10:57 - CONCLUSION: No evidence of deep venous thrombosis within the lower extremities. Elton Garcia MD Laboratory Test 02/05/17 02/05/17 02/05/17 10:15 12:10 13:20 White Blood Count 4.9 TH/MM3 Red Blood Count 4.82 MIL/MM3 Hemoglobin 12.5 GM/DL Hematocrit 37.2 % Mean Corpuscular Volume 77.1 FL Mean Corpuscular Hemoglobin 25.9 PG Mean Corpuscular Hemoglobin 33.6 % Concent Red Cell Distribution Width 14.3 % Platelet Count 101 TH/MM3 Mean Platelet Volume 9.4 FL Neutrophils (%) (Auto) 73.5 % Lymphocytes (%) (Auto) 15.2 % Monocytes (%) (Auto) 10.6 % Eosinophils (%) (Auto) 0.2 % Basophils (%) (Auto) 0.5 % Neutrophils # (Auto) 3.6 TH/MM3 Lymphocytes # (Auto) 0.7 TH/MM3 Monocytes # (Auto) 0.5 TH/MM3 Eosinophils # (Auto) 0.0 TH/MM3 Basophils # (Auto) 0.0 TH/MM3 CBC Comment DIFF FINAL Differential Comment Prothrombin Time 9.7 SEC Prothromb Time International 0.9 RATIO Ratio Activated Partial 28.2 SEC Thromboplast Time Sodium Level 137 MEQ/L Potassium Level 4.1 MEQ/L Chloride Level 108 MEQ/L Carbon Dioxide Level 18.4 MEQ/L Anion Gap 11 MEQ/L Blood Urea Nitrogen 5 MG/DL Creatinine 0.71 MG/DL Estimat Glomerular Filtration 113 ML/MIN Rate Random Glucose 91 MG/DL Calcium Level 8.3 MG/DL Magnesium Level 1.8 MG/DL Total Bilirubin 0.8 MG/DL Aspartate Amino Transf 177 U/L (AST/SGOT) Alanine Aminotransferase 190 U/L (ALT/SGPT) Alkaline Phosphatase 252 U/L Total Creatine Kinase 116 U/L 110 U/L Creatine Kinase MB 0.8 NG/ML Troponin I LESS THAN 0.02 0.02 NG/ML NG/ML Total Protein 6.7 GM/DL Albumin 2.6 GM/DL Lipase GREATER THAN 26581 U/L Urine Color YELLOW Urine Turbidity CLEAR Urine pH 6.0 Urine Specific [place] 1.014 Urine Protein TRACE mg/dL Urine Glucose (UA) NEG mg/dL Urine Ketones 40 mg/dL Urine Occult Blood NEG Urine Nitrite NEG Urine Bilirubin SMALL Urine Urobilinogen 4.0 MG/DL Urine Leukocyte Esterase NEG Urine RBC LESS THAN 1 /hpf Urine WBC 1 /hpf Urine Squamous Epithelial 2 /hpf Cells Urine Bacteria RARE /hpf Microscopic Urinalysis Comment CULT NOT INDICATED Physical Examination HEENT: Pupils round and reactive to light; normocephalic; atraumatic; no jaundice. Throat is clear. NECK: Neck is supple, no JVD, no lymphadenopathy. CHEST: Chest is clear to auscultation and percussion. CARDIAC: Regular rate and rhythm with no murmur gallop or rubs. ABDOMEN: Soft, nondistended, nontender; no hepatosplenomegaly; bowel sounds are present in all four quadrants. EXTREMITIES: No clubbing, cyanosis, or edema. SKIN: Normal; no rash; no jaundice. BOARD LAYER: No focal deficits; alert and oriented times three. (Laurie Weller CUSTOMER SERVICE SECURITY OFFICER) Assessment and Plan Plan ASSESSMENT - abdominal pain - onset this morning. poss choledocholithiasis. lipase >30, 000. hx cholelithiasis as seen prev US 08/2016. us 02-08-17--> 1. Mild hepatic steatosis. 2. Cholelithiasis without sonographic evidence to suggest acute cholecystitis. 3. Common bile duct is just out of the range of normal measuring 6 mm. I cannot exclude choledocholithiasis. I see no appreciable intrahepatic biliary dilatation. MRCP could be considered to furthe r evaluate. 4. Either non-shadowing stone or focus of fat associated with the upper pole of the right kidney. - elevated LFTs - likely 2/2 above. on admission AST 177, ALT 190, ALP 252, Tbill WNL. MRCP pending PLAN - NPO - await MRCP w/o contrast - IVF - monitor labs - supportive care - further recommendations to follow This pt seen by myself and Dr Ramirez and this note is written on his behalf (Laurie Weller) Physician Comments Patient seen and examined Agree with above Continue with current supportive care Monitor labs MRCP is basically unremarkable for choledocholithiasis I still think the patient had gallstone pancreatitis but at this point there is no urgency to pursue any intervention except for supportive care and pain control and hydration Once the patient delivers her baby she probably ought to have her gallbladder removed Not much to add from a GI perspective we will continue to follow and monitor labs (Justo Ramirez MD) Laurie Weller Feb 05, 2017 14:39 Justo Ramirez MD Feb 05, 2017 21:51
[2017-02-05 15:11] VITALS: BP 144/89; PULSE 103; RESP 16; O2SAT 98
--- NOTE | 2017-02-05 16:14 | RADRPT ---
EXAM DATE/TIME: 02/05/2017 15:23 [facility] COMPARISON: CHEST SINGLE AP, February 05, 2017, 10:00. INDICATIONS : Chest pain and dyspnea. Patient is 7 months . DOSE: 1.1 mCi Tc99m Labeled MAA IV MEDICAL HISTORY : Hypertension. . SURGICAL HISTORY : Gastric bypass. ENCOUNTER: Initial ACUITY: 2 days PAIN SCALE: 5/10 LOCATION: Left chest TECHNIQUE: The patient was injected with MAA, and eight-view perfusion scan was performed. FINDINGS: PERFUSION: There is a homogenous pattern of radiotracer uptake throughout both lungs. CONCLUSION: Normal examination. Kenton Knapp MD on February 05, 2017 at 16:11 Board Certified Radiologist. This report was verified electronically.
[2017-02-05 17:10] VITALS: BP 134/82; PULSE 113; RESP 18; O2SAT 97
--- NOTE | 2017-02-05 17:23 | RADRPT ---
EXAM DATE/TIME: 02/05/2017 16:15 [facility] COMPARISON: No previous studies available for comparison. INDICATIONS : Abdominal pain. MEDICAL HISTORY : Hypertension. SURGICAL HISTORY : Gastric bypass. ENCOUNTER: Initial ACUITY: 2 day PAIN SCORE: 8/10 LOCATION: Abdomen. TECHNIQUE: Multiplanar, multisequence magnetic resonance imaging of the abdomen was performed. High-resolution 3D dataset was utilized to reconstruct maximum-intensity projection (MIP) images. FINDINGS: INTRAHEPATIC BILE DUCTS: Within normal limits. No significant anatomical variant is present. EXTRAHEPATIC BILE DUCTS: The common bile duct measures 6 mm. No stone or filling defect is identified. GALLBLADDER: No wall thickening or pericholecystic fluid. Stones layer within the within the gallbladder lumen. LIVER: Normal size and signal intensity. No concerning liver lesion is identified on this non-contrast exam. PANCREAS: The main pancreatic duct is normal in size. There is no significant anatomical variant. Signal inte nsity is within normal limits. No mass is visualized on this non-contrast exam. OTHER: The remaining visualized structures demonstrate no acute abnormality on this non-contrast exam. Simpl e cysts are noted within both kidneys. Interuterine is noted. CONCLUSION: 1. No evidence of biliary ductal dilatation. 2. Cholelithiasis. 3. Tiny bilateral renal cysts. Elton Garcia MD on February 05, 2017 at 17:16 Board Certified Radiologist. This report was verified electronically.
[2017-02-05 20:33] VITALS: BP 143/92; PULSE 91; RESP 20; TEMP 98; O2SAT 98
--- NOTE | 2017-02-06 00:27 | HHI.HP ---
HPI Chief Complaint Chest pain shortness of breath Date Seen: Feb 05, 2017 Time Seen: 23:55 Travel History International Travel<30 Days: No Contact w/Intl Traveler<30Days: No Known Affected Area: No History of Present Illness HPI Patient is 36-year-old black female previous 1 now 33 weeks and 5 days presents with chest pain or shortness of breath. Patient was is seen in the main emergency room workup was done that ruled out pulmonary embolus and cardiac disease their workup also showed the laboratory with the extremely high lipase greater than 30,000 which be consistent with pancreatitis , she has known gallstones for some time and ultrasound today confirmed gallstones, patient does not drink smoke or use drugs she is having no obstetric problem no contractions leakage of fluid or vaginal bleeding. She sees . In [facility] Para: 1 : 2 Last Menstrual Period: Feb 06, 2017 History Past Medical History Narrative Medical Hypertension and was on metoprolol before but was taken off of it in early she's not been on anything since her blood pressures been within normal limits through according to her Obstetric History Obstetric History 1 for failure to progress after being induced Past Surgical History Narrative Surgical 1 Social History Alcohol Use: No Tobacco Use: No Substance Abuse: No Allergies-Medications (Allergen,Severity, Reaction): Coded Allergies: Aspirin (Verified Adverse Reaction, Severe, CAN'T TAKE BECAUSE GASTRIC BYPASS, 09/06/16) STATES SHE CAN'T TAKE ASPIRIN SINCE SHE HAD GASTRIC BYPASS IN 2008. *MDRO Multi-Drug Resistant Organism (Verified Adverse Reaction, Unknown, ) MRSA Home Meds Reported Medications Vit-Iron Carbonyl ( Plus Iron 29-1 mg)1 Tab Tab1 Tab PO DAILY #30 TAB Ref 0 09/06/16 Discontinued Reported Medications Metoprolol Tartrate 25 Mg Tab25 Mg PO DAILY #30 TAB Ref 0 09/06/16 Discontinued Scripts Ondansetron Odt (Zofran Odt)4 Mg Tab4 Mg SL Q6HR PRN (Nausea/Vomiting) #10 TAB Ref 0 Prov:Hank Bledsoe MD 09/06/16 Review of Systems General / Constitutional: No: Fever, Weight Gain, Chills, Other Eyes: No: Diploplia, Blurred Vision, Visual changes, Pain, Photophobia HENT: No: Headaches, Vertigo, Lightheadedness Cardiovascular: Chest Pain or Discomfort, No: Irregular Rhythm, Palpitations, Tachycardia, Syncope, Varicosities, Edema, Cyanosis Respiratory: No: Cough, Short of Breath, Other Gastrointestinal: Abdominal Pain, No: Nausea, Vomiting, Diarrhea Genitourinary: No: Decreased Urinary Output, Oliguria Musculoskeletal: No: Limited ROM, Weakness, Cramping, Edema, Pain Skin: No Rash, No Itching, No Dryness, No Lumps, No Change in Pigmentation, No Change in Nails, No Alopecia, No Lesions Neurologic: No: Weakness, Dizziness, Syncope, Focal Abnormalities, Coordination Problem, Headache, Slurred Speech, Seizures Psychiatric: No: Depression, Suicidal Ideations, Homicidal Ideation Endocrine: No: Heat Intolerance, Cold Intolerance, Polydipsia, Polyuria, Other Physical Exam Vital Signs Date Time Temp Pulse Resp B/P Pulse Ox O2 Delivery O2 Flow Rate FiO2 02/05/17 20:33 98.0 91 20 143/92 98 02/05/17 17:10 113 18 134/82 97 Room Air 02/05/17 15:11 103 16 144/89 98 02/05/17 12:10 103 16 142/73 97 Room Air 02/05/17 10:01 100 02/05/17 09:58 98 Room Air 02/05/17 09:32 99.4 126 28 135/90 98 Room Air Narrative GENERAL: Well-nourished, well-developed obese patient. SKIN: Warm and dry. HEAD: Normocephalic and atraumatic. EYES: No scleral icterus. No injection or drainage. ENT: No nasal drainage noted. Mucous membranes pink. Airway patent. NECK: Supple, trachea midline. No JVD. CARDIOVASCULAR: Regular rate and rhythm without murmurs, gallops, or rubs. RESPIRATORY: Breath sounds equal bilaterally. No accessory muscle use. BREASTS: Bilateral exam showed no masses , no retractions, no nipple discharge. ABDOMEN/GI: Abdomen soft, non-tender, bowel sounds present, no rebound, no guarding Gravid to [-33] weeks size Fundal Height: [35-] GENITOURINARY: External Genitalia: intact and normal in appearance BUS glands: [-] Cervix: [-] Deferred Dilatation: [-] Deferred Effacement: [-] Membranes: [intact ] Uterine Contractions: [-none] FHT's: 160 Category: [-] heart rate monitors not been used on this patient yet so no strip to evaluate Baseline: [-] Reactive: [-] Variability: [-] Decels: [-] EXTREMITIES: No cyanosis or edema. BACK: Nontender without obvious deformity. No CVA tenderness. NEUROLOGICAL: Awake and alert. Motor and sensory grossly within normal limits. Five out of 5 muscle strength in all muscle groups. Normal speech. Data Data Orders Electrocardiogram (02/05/17 ) B-Type Natriuretic Peptide (02/05/17 09:57) Ckmb (Isoenzyme) Profile (02/05/17 09:57) Complete Blood Count With Diff (02/05/17 09:57) Comprehensive Metabolic Panel (02/05/17 09:57) Magnesium (Mg) (02/05/17 09:57) Prothrombin Time / Inr (Pt) (02/05/17 09:57) Act Partial Throm Time (Ptt) (02/05/17 09:57) Troponin I (02/05/17 09:57) Lipase (02/05/17 09:57) Chest, Single Ap (02/05/17 09:57) Ecg Monitoring (02/05/17 09:57) Iv Access Insert/Monitor (02/05/17 09:57) Oximetry (02/05/17 09:57) Sodium Chloride 0.9% Flush (Ns Flush) (02/05/17 10:00) Urinalysis - C+S If Indicated (02/05/17 09:57) Sodium Chlor 0.9% 1000 Ml Inj (Ns 1000 M (02/05/17 10:00) Acetaminophen (Tylenol) (02/05/17 10:00) Bilateral Bp Monitoring (02/05/17 09:57) Us Leg Venous Doppler Bilat (02/05/17 ) CKMB (02/05/17 10:15) CKMB% (02/05/17 10:15) Us Abdomen Pancreas (02/05/17 ) Ckmb (Isoenzyme) Profile (02/05/17 12:44) Troponin I (02/05/17 12:44) Lung Scan - Perfusion (02/05/17 ) Mri Mrcp W/O Contrast (02/05/17 ) Admit Order (Ed Use Only) (02/05/17 16:35) Cbc No Diff, Includes Plts (02/06/17 06:00) Comprehensive Metabolic Panel (02/06/17 06:00) Lipase (02/06/17 06:00) Pneumococcal-23 Polyvalent Inj (Pneumova (02/06/17 09:00) Labs Laboratory Tests Test 02/05/17 02/05/17 02/05/17 10:15 12:10 13:20 White Blood Count 4.9 Red Blood Count 4.82 Hemoglobin 12.5 Hematocrit 37.2 Mean Corpuscular Volume 77.1 Mean Corpuscular Hemoglobin 25.9 Mean Corpuscular Hemoglobin 33.6 Concent Red Cell Distribution Width 14.3 Platelet Count 101 Mean Platelet Volume 9.4 Neutrophils (%) (Auto) 73.5 Lymphocytes (%) (Auto) 15.2 Monocytes (%) (Auto) 10.6 Eosinophils (%) (Auto) 0.2 Basophils (%) (Auto) 0.5 Neutrophils # (Auto) 3.6 Lymphocytes # (Auto) 0.7 Monocytes # (Auto) 0.5 Eosinophils # (Auto) 0.0 Basophils # (Auto) 0.0 CBC Comment DIFF FINAL Differential Comment Prothrombin Time 9.7 Prothromb Time International 0.9 Ratio Activated Partial 28.2 Thromboplast Time Sodium Level 137 Potassium Level 4.1 Chloride Level 108 Carbon Dioxide Level 18.4 Anion Gap 11 Blood Urea Nitrogen 5 Creatinine 0.71 Estimat Glomerular Filtration 113 Rate Random Glucose 91 Calcium Level 8.3 Magnesium Level 1.8 Total Bilirubin 0.8 Aspartate Amino Transf 177 (AST/SGOT) Alanine Aminotransferase 190 (ALT/SGPT) Alkaline Phosphatase 252 Total Creatine Kinase 116 110 Creatine Kinase MB 0.8 Troponin I LESS THAN 0.02 0.02 Total Protein 6.7 Albumin 2.6 Lipase GREATER THAN 62330 Urine Color YELLOW Urine Turbidity CLEAR Urine pH 6.0 Urine Specific [place] 1.014 Urine Protein TRACE Urine Glucose (UA) NEG Urine Ketones 40 Urine Occult Blood NEG Urine Nitrite NEG Urine Bilirubin SMALL Urine Urobilinogen 4.0 Urine Leukocyte Esterase NEG Urine RBC LESS THAN 1 Urine WBC 1 Urine Squamous Epithelial 2 Cells Urine Bacteria RARE Microscopic Urinalysis Comment CULT NOT INDICATED Assessment/Plan Assessment and Plan 36-year-old white female previous 1 now 33-34 weeks with the pancreatitis abdominal pain some nausea vomiting. No obstetric problems noted to date, GI did a consult on the patient testing has been done. Plan this point to continue GI and medicine's recommendations on the patient, provide pain medication antibiotic therapy as needed, and monitor the fetus daily Octavio Mitchell II, MD Feb 06, 2017 00:27
[2017-02-06] MEDS ORDERED: SODIUM CHLORIDE 0.9% FLUSH 10 ML FLUSH IV FLUSH PRN (00:30)
[2017-02-06] MEDS ORDERED: ONDANSETRON HCL 4 MG/2 ML VIAL IV PRN (00:30)
[2017-02-06] MEDS ORDERED: ZOLPIDEM TARTRATE 5 MG TAB PO PRN (00:30)
[2017-02-06] MEDS ORDERED: MORPHINE SULFATE 4 MG/ML INJ IV PUSH PRN (00:45)
[2017-02-06 01:19] VITALS: BP 139/89; PULSE 95; RESP 18; TEMP 98.3; O2SAT 98
[2017-02-06 04:21] VITALS: BP 132/82; PULSE 91; RESP 20; TEMP 98.5; O2SAT 98
[2017-02-06] MEDS: METOCLOPRAMIDE HCL 10 MG/2 ML VIAL IM SCH ×2 (05:18→14:00)
[2017-02-06 07:38] LABS: HEMATOCRIT 36.2 % (35.0-46.0); MEAN CELL VOLUME 76.5 FL (80.0-100.0); MEAN CORPUSCULAR HEMOGLOBIN 25.9 PG (27.0-34.0); MEAN CORPUSCULAR HGB CONC 33.9 % (32.0-36.0); PLATELET COUNT 86 TH/MM3 (150-450); RED BLOOD COUNT 4.74 MIL/MM3 (4.00-5.30); WHITE BLOOD COUNT 3.2 TH/MM3 (4.0-11.0)
[2017-02-06 07:43] LABS: REVIEW FLAG FINAL
[2017-02-06 07:45] VITALS: BP 137/84; PULSE 108; RESP 20; TEMP 98.3; O2SAT 96
[2017-02-06 08:05] LABS: ALT (GPT) 154 U/L (10-53); ANION GAP 12 MEQ/L (5-15); AST (GOT) 106 U/L (15-37); BICARBONATE 18.6 MEQ/L (21.0-32.0); BLOOD UREA NITROGEN 5 MG/DL (7-18); CHLORIDE 108 MEQ/L (98-107); GLOMERULAR FILTRATION RATE 145 ML/MIN (>89); POTASSIUM 3.7 MEQ/L (3.5-5.1); SODIUM (NA) 139 MEQ/L (136-145)
[2017-02-06 08:09] LABS: ALKALINE PHOSPHATASE 241 U/L (45-117); TOTAL BILIRUBIN ADULT 0.4 MG/DL (0.2-1.0)
[2017-02-06] MEDS: SODIUM CHLORIDE 0.9% FLUSH 10 ML FLUSH IV FLUSH SCH ×2 (08:35→21:00)
[2017-02-06] MEDS ORDERED: PNEUMOCOCCAL POLYVALENT INJ 25 MCG/0.5 ML SYR IM ONE (09:00)
--- NOTE | 2017-02-06 11:33 | HHI.GIFU ---
Subjective Remarks Pt resting, says her pain is much improved, no nausea, she has been eating crackers and drinking water. (Laurie Weller) Objective Vitals I&O Vital Signs Date Time Temp Pulse Resp B/P Pulse Ox O2 Delivery O2 Flow Rate FiO2 02/06/17 07:45 98.3 108 20 137/84 96 02/06/17 04:21 98.5 91 20 132/82 98 02/06/17 01:19 98.3 95 18 139/89 98 02/05/17 20:33 98.0 91 20 143/92 98 02/05/17 17:10 113 18 134/82 97 Room Air 02/05/17 15:11 103 16 144/89 98 02/05/17 12:10 103 16 142/73 97 Room Air I/O 02/05/17 02/05/17 02/05/17 02/06/17 02/06/17 02/06/17 07:00 15:00 23:00 07:00 15:00 23:00 Intake Total 50 ml 50 ml Balance 50 ml 50 ml Intake Oral 50 ml 50 ml Laboratory Laboratory Tests Test 02/05/17 02/05/17 02/06/17 12:10 13:20 06:21 Total Creatine Kinase 110 Troponin I 0.02 Urine Color YELLOW Urine Turbidity CLEAR Urine pH 6.0 Urine Specific [place] 1.014 Urine Protein TRACE Urine Glucose (UA) NEG Urine Ketones 40 Urine Occult Blood NEG Urine Nitrite NEG Urine Bilirubin SMALL Urine Urobilinogen 4.0 Urine Leukocyte Esterase NEG Urine RBC LESS THAN 1 Urine WBC 1 Urine Squamous Epithelial 2 Cells Urine Bacteria RARE Microscopic Urinalysis Comment CULT NOT INDICATED White Blood Count 3.2 Red Blood Count 4.74 Hemoglobin 12.3 Hematocrit 36.2 Mean Corpuscular Volume 76.5 Mean Corpuscular Hemoglobin 25.9 Mean Corpuscular Hemoglobin 33.9 Concent Red Cell Distribution Width 14.0 Platelet Count 86 Mean Platelet Volume 9.7 Sodium Level 139 Potassium Level 3.7 Chloride Level 108 Carbon Dioxide Level 18.6 Anion Gap 12 Blood Urea Nitrogen 5 Creatinine 0.57 Estimat Glomerular Filtration 145 Rate Random Glucose 76 Calcium Level 8.7 Total Bilirubin 0.4 Aspartate Amino Transf 106 (AST/SGOT) Alanine Aminotransferase 154 (ALT/SGPT) Alkaline Phosphatase 241 Total Protein 6.4 Albumin 2.4 Lipase 5647 Physical Exam HEENT: PERRL; normocephalic; atraumatic; no jaundice. CHEST: CTA CARDIAC: RRR ABDOMEN: Soft, protuberant, nontender; no hepatosplenomegaly; bowel sounds are present in all four quadrants. EXTREMITIES: No clubbing, cyanosis, or edema. SKIN: Normal; no rash; no jaundice. SUMMER ASSOCIATE: No focal deficits; alert and oriented times three. (Laurie Weller) Assessment and Plan Plan ASSESSMENT - abdominal pain - lipase decreasing. onset yesterday after fatty meal the day before. on admission lipase >30,000. \ hx cholelithiasis as seen prev US 08/2016. MRCP unremarkable. likely pt had gallstone pancreatitis. us 02-08-17--> 1. Mild hepatic steatosis. 2. Cholelithiasis without sonographic evidence to suggest acute cholecystitis. 3. Common bile duct is just out of the range of normal measuring 6 mm. I cannot exclude choledocholithiasis. I see no appreciable intrahepatic biliary dilatation. MRCP could be considered to furthe r evaluate. 4. Either non-shadowing stone or focus of fat associated with the upper pole of the right kidney. - elevated LFTs - likely 2/2 above. trending down. on admission AST 177, ALT 190, ALP 252, Tbill WNL. PLAN - clears - low fat diet after d/c - consider cholecystectomy after delivery of child - monitor labs - supportive care This pt seen by myself and Dr Ramirez and this note is written on his behalf (Laurie Weller) Physician Comments Patient seen and examined Agree with above Continue with current supportive care Monitor labs Labs appear to be trending down Most likely gallstone pancreatitis that seems to be resolving Will advance to clear liquids Anticipate discharge in 1-2 days especially if her lab trends continued down Not much to add from a GI perspective at this point we will sign off (Justo Ramirez MD) Laurie Weller Feb 06, 2017 11:33 Justo Ramirez MD Feb 06, 2017 22:41
--- NOTE | 2017-02-06 11:57 | EKG ---
Date Performed: 02/05/2017 Time Performed: 09:52:03 PTAGE: 36 years EKG: SINUS TACHYCARDIA ABNORMAL RHYTHM ECG PREVIOUS TRACING : 02/05/2016 17.23 Compared to prior tracing no significant change DOCTOR: Mp Macedo Interpretating Date/Time 02/06/2017 11:55:02
[2017-02-06 12:06] VITALS: BP 130/83; PULSE 96; RESP 20; TEMP 98; O2SAT 98
[2017-02-06] MEDS ORDERED: METOCLOPRAMIDE HCL 10 MG/2 ML VIAL IV PUSH PRN (15:00)
[2017-02-06 19:36] VITALS: BP 136/80; PULSE 108; RESP 18; TEMP 99.1; O2SAT 98
[2017-02-07] VITALS (9 sets, daily range): BP systolic 131–144; BP diastolic 87–91; PULSE 101–112; RESP 18; TEMP 98.3
--- NOTE | 2017-02-07 09:21 | PD.OB.ANTE ---
Subjective Diagnosis: (1) Pancreatitis, acute Diagnosis: Principal (2) 33 weeks gestation of Diagnosis: Secondary Interval History Patient is a 36 year old at 33 weeks and 0 days who presented to ED complaining of epigastric pain and nausea. In ED, she was diagnosed with acute pancreatitis, treated with pain meds and kept NPO. Patient now tolerating a liquid diet. She denies any chest, abdominal and general body pains, heart palpitations, shortness of breath, nausea and vomiting, diarrhea and constipation. She denies regular contractions, vaginal bleeding, gush of fluids. She endorses appropriate movement. She ambulates without pain in her legs. Antepartum ROS: Reports: movement normal, Denies: New complaints, Loss of fluid, Vaginal bleeding, Contractions ( Yakelin Francisco MD R1) Objective Vital Signs Vital Signs Date Time Temp Pulse Resp B/P Pulse Ox O2 Delivery O2 Flow Rate FiO2 02/07/17 08:16 98.3 18 02/07/17 08:15 101 131/87 02/06/17 19:36 99.1 108 18 136/80 98 02/06/17 12:06 98.0 96 20 130/83 98 Intake & Output 02/07/17 02/07/17 06:59 18:59 Intake Total 200 ml Balance 200 ml Intake Oral 200 ml Lab & Micro Results Laboratory Tests Test 02/05/17 02/05/17 02/05/17 02/06/17 10:15 12:10 13:20 06:21 Neutrophils (%) (Auto) 73.5 % Lymphocytes (%) (Auto) 15.2 % Monocytes (%) (Auto) 10.6 % Eosinophils (%) (Auto) 0.2 % Basophils (%) (Auto) 0.5 % Neutrophils # (Auto) 3.6 TH/MM3 Lymphocytes # (Auto) 0.7 TH/MM3 Monocytes # (Auto) 0.5 TH/MM3 Eosinophils # (Auto) 0.0 TH/MM3 Basophils # (Auto) 0.0 TH/MM3 CBC Comment DIFF FINAL Differential Comment Prothrombin Time 9.7 SEC Prothromb Time International 0.9 RATIO Ratio Activated Partial 28.2 SEC Thromboplast Time Magnesium Level 1.8 MG/DL Creatine Kinase MB 0.8 NG/ML B-Type Natriuretic Peptide LESS THAN 2 PG/ML Total Creatine Kinase 110 U/L Troponin I 0.02 NG/ML Urine Color YELLOW Urine Turbidity CLEAR Urine pH 6.0 Urine Specific [place] 1.014 Urine Protein TRACE mg/dL Urine Glucose (UA) NEG mg/dL Urine Ketones 40 mg/dL Urine Occult Blood NEG Urine Nitrite NEG Urine Bilirubin SMALL Urine Urobilinogen 4.0 MG/DL Urine Leukocyte Esterase NEG Urine RBC LESS THAN 1 /hpf Urine WBC 1 /hpf Urine Squamous Epithelial 2 /hpf Cells Urine Bacteria RARE /hpf Microscopic Urinalysis Comment CULT NOT INDICATED White Blood Count 3.2 TH/MM3 Red Blood Count 4.74 MIL/MM3 Hemoglobin 12.3 GM/DL Hematocrit 36.2 % Mean Corpuscular Volume 76.5 FL Mean Corpuscular Hemoglobin 25.9 PG Mean Corpuscular Hemoglobin 33.9 % Concent Red Cell Distribution Width 14.0 % Platelet Count 86 TH/MM3 Mean Platelet Volume 9.7 FL Sodium Level 139 MEQ/L Potassium Level 3.7 MEQ/L Chloride Level 108 MEQ/L Carbon Dioxide Level 18.6 MEQ/L Anion Gap 12 MEQ/L Blood Urea Nitrogen 5 MG/DL Creatinine 0.57 MG/DL Estimat Glomerular Filtration 145 ML/MIN Rate Random Glucose 76 MG/DL Calcium Level 8.7 MG/DL Total Bilirubin 0.4 MG/DL Aspartate Amino Transf 106 U/L (AST/SGOT) Alanine Aminotransferase 154 U/L (ALT/SGPT) Alkaline Phosphatase 241 U/L Total Protein 6.4 GM/DL Albumin 2.4 GM/DL Lipase 5647 U/L Physical Exam GENERAL: Well-nourished, well-developed patient. CARDIOVASCULAR: Regular rate and rhythm without murmurs, gallops, or rubs. RESPIRATORY: Breath sounds equal bilaterally. No accessory muscle use. ABDOMEN/GI: Abdomen soft, non-tender. Fundus: 33 weeks gestation FHT's: Category: 1 Baseline: 140 Reactive: Reactive Variability: Moderate Decels: None EXTREMITIES: No cyanosis or edema, non-tender, without signs of DVT. (Yakelin Francisco MD R1) Assessment and Plan Assessment and Plan Patient is a 36 year old at 33 weeks and 0 days with hx of one previous C- section who presented to ED complaining of epigastric pain and nausea. Patient was found to have acute pancreatitis. Patient has not been found to have any obstetric problems with the exception of gestational thrombocytopenia noted at this admission. * GI is consulted, following their recommendations. * Advance diet today from clear liquid to low fat diet. * Continue monitoring daily. * At d/c, instruct patient to recheck platelet count at [address] Maza. (Yakelin Francisco MD R1) Collaborating MD Comments I have seen patient and discussed care with resident (Marlys Maza MD) Yakelin Francisco MD R1 Feb 07, 2017 09:21 Marlys Maza MD Feb 13, 2017 12:43
[2017-02-07] MEDS: SODIUM CHLORIDE 0.9% FLUSH 10 ML FLUSH IV FLUSH SCH (09:50)
[2017-02-07] MEDS ORDERED: ONDA1TAB17 PO (13:48)
--- NOTE | 2017-02-07 13:49 | HHI.DCPOC ---
Discharge Care Plan Diagnosis: (1) Choledocholithiasis with obstruction (2) Pancreatitis, acute (3) Thrombocytopenia affecting (4) Thrombocytopenia (5) Gestational thrombocytopenia Report Symptoms to Your Doctor -Temperature above 100.5 degrees -Redness, of incision or excessive or foul smelling drainage -Unusual pain or calf pain -Increased vaginal bleeding -Painful or difficulty urinating -Feelings of extreme sadness or anxiety after 2 weeks Goals to Promote Your Health * To prevent worsening of your condition and complications, please follow-up with your doctor. * To maintain your health at the optimal level, please follow up with your doctor. Directions to Meet Your Goals Take your medications as prescribed Follow your dietary instruction Follow activity as directed Ensure plenty of rest for recovery Drink fluids for hydration Keep your appointments as scheduled Take your immunizations and boosters as scheduled If your symptoms worsen call your PCP, if no PCP go to Urgent Care Center or Emergency Room Smoking is Dangerous to Your Health. Avoid second hand smoke Call the 24-hour crisis hotline for domestic abuse at Lavell Sky MD R1 Feb 07, 2017 13:49
== END 2017-02-07 14:39 | disposition home or self-care (01) ==
LOC: NEPC 09:30 → NEDA 16:36 → OBSVTOIN 16:36 → INTOOBSV 16:36 → NEPGCP 20:05 → HCIS 02-06 08:49 → NEPGCP 02-06 08:59 → H2EA 02-06 20:48 → UNDODISIN 02-07 14:39
PROVIDERS: ADMIT Obstetrics & Gynecology Maternal & Fetal Medicine; ATTEND Obstetrics & Gynecology Maternal & Fetal Medicine
DX: O26.613 Liver and biliary tract disorders in pregnancy, third trimester (principal); K85.10 Biliary acute pancreatitis without necrosis or infection; D69.59 Other secondary thrombocytopenia; O99.113 Other diseases of the blood and blood-forming organs and certain disorders involving the immune mechanism complicating pregnancy, third trimester; Z3A.33 33 weeks gestation of pregnancy; R06.02 Shortness of breath
CPT/HCPCS: 59025; 71010; 74181; 76377; 76705; 76816; 78580; 80053; 81001; 82550; 82552; 83690; 83735; 83880; 84484; 85025; 85027; 85610; 85730; 93005; 93970; 96360; 99291; A9540; G0378; J2765; J7030

== ENCOUNTER 2017-07-21 01:58 | Emergency (ER) | payer MEDICAID ==
[~2017-07-21] VITALS: Ht 167.6 cm; Wt 100.0 kg
[~2017-07-21 01:58] MED LIST changes: -METO25TA3 PO; +ONDA8TAB7 PO; -ZOFR4TAB3 SL
[2017-07-21 01:59] VITALS: BP 176/100; PULSE 76; RESP 16; TEMP 98.4; O2SAT 99
[2017-07-21 02:54] VITALS: RESP 18; O2SAT 100
--- NOTE | 2017-07-21 02:54 | PD ---
HPI Chief Complaint: Chest Pain Time Seen by Provider: 02:51 Travel History International Travel<30 days: No Contact w/Intl Traveler<30days: No Traveled to known affect area: No History of Present Illness HPI 37 year-old female presents to the emergency department for complaint of left- sided chest pain with taking a deep breath. Patient states that she has shallow breathing she does not notice any chest discomfort but upon taking deep breath that increase pain. Patient denies previous history of similar symptoms. Patient denies control pill use or tobaccoism. No recent long distance travel protracted bedrest her surgical procedure. Patient's had no recent febrile illness. Patient's had no productive cough. No hemoptysis. Patient denies nausea vomiting abdominal pain diarrhea constipation or urinary symptoms. No flank pain. Patient rates her current discomfort with deep inspiratory effort 8/10 in intensity. Symptoms began yesterday at 9 AM. Symptoms have not worsened. Patient has prior history of gastric bypass and sensitivity to aspirin as it causes her to have increased bleeding and bruising but has no issues with nonsteroidal anti-inflammatory such as ibuprofen reportedly. Patient has taken no medications for symptom relief. Patient does report history of hypertension for which she is prescribed labetalol. Patient denies CAD dyslipidemia and diabetes and tobaccoism. PFSH Past Medical History Narrative Medical Dyslipidemia, cholelithiasis, nephrolithiasis hypertension, atypical chest pain , gastric bypass, ; no tobacco use; nursing notes reviewed Asthma: No Blood Disorders: No Anxiety: No Depression: No Heart Rhythm Problems: No Cancer: No Cardiovascular Problems: No High Cholesterol: Yes Chemotherapy: No Chest Pain: Yes (chest pain from gi disturbance) Congestive Heart Failure: No COPD: No Diabetes: No Diminished Hearing: No Endocrine: No Gastrointestinal Disorders: Yes (GALL STONES, KIDNEY STONES) Genitourinary: No Hypertension: Yes Immune Disorder: No Implanted Vascular Access Dvce: No Musculoskeletal: No Neurologic: No Psychiatric: No Reproductive: Yes (2X ) Respiratory: No Immunizations Current: Yes Radiation Therapy: No Sleep Apnea: No Thyroid Disease: No ?: Not LMP: 07/18/17 : 1 Para: 1 Past Surgical History Abdominal Surgery: Yes (GASTRIC BYPASS-NOVEMBER 2008) Section: Yes (X 2) Social History Alcohol Use: No Tobacco Use: No Substance Use: No Allergies-Medications (Allergen,Severity, Reaction): Coded Allergies: aspirin (Unverified Adverse Reaction, Severe, CAN'T TAKE BECAUSE GASTRIC BYPASS, 07/21/17) STATES SHE CAN'T TAKE ASPIRIN SINCE SHE HAD GASTRIC BYPASS IN 2008. *MDRO Multi-Drug Resistant Organism (Verified Adverse Reaction, Unknown, ) MRSA Comments per patient "aspirin makes my blood too thin; Motrin, I'm ok" (07/21/17) Reported Meds & Prescriptions Reported Meds & Active Scripts Active Ondansetron (Ondansetron HCl) 8 Mg Tab 8 Mg PO TID Reported Plus Iron 29-1 mg ( Vit-Iron Carbonyl) 1 Tab Tab 1 Tab PO DAILY Review of Systems Except as stated in HPI: all other systems reviewed are Neg General / Constitutional: No: Fever, Chills Eyes: No: Visual changes HENT: No: Headaches, Congestion Cardiovascular: Positive: Chest Pain or Discomfort Respiratory: Positive: Pleuritic Pain, No: Shortness of Breath Gastrointestinal: No: Nausea, Vomiting, Diarrhea, Abdominal Pain Genitourinary: No: Dysuria, Flank Pain Musculoskeletal: No: Myalgias, Arthralgias, Edema, Pain Skin: No Rash Neurologic: No: Weakness Psychiatric: No: Anxiety Hematologic/Lymphatic: No: Lymph Node Enlargement Physical Exam Narrative GENERAL: Well-developed well-nourished obese female in no acute distress no respiratory distress room air O2 saturation 98% -100% SKIN: Warm and dry. HEAD: Normocephalic. EYES: No scleral icterus. No injection or drainage. NECK: Supple, trachea midline. No JVD or lymphadenopathy. CARDIOVASCULAR: Regular rate and rhythm without murmurs, gallops, or rubs. RESPIRATORY: Breath sounds equal bilaterally. No accessory muscle use. GASTROINTESTINAL: Abdomen soft, non-tender, nondistended. MUSCULOSKELETAL: No cyanosis, or edema. BACK: Nontender without obvious deformity. No CVA tenderness. Data Data Last Documented VS Vital Signs Date Time Temp Pulse Resp B/P (MAP) Pulse Ox O2 Delivery O2 Flow Rate FiO2 07/21/17 06:08 20 07/21/17 04:39 88 156/96 (116) 98 Room Air 07/21/17 01:59 98.4 Orders Orders Electrocardiogram (07/21/17 02:51) Basic Metabolic Panel (Bmp) (07/21/17 02:51) Ckmb (Isoenzyme) Profile (07/21/17 02:51) Complete Blood Count With Diff (07/21/17 02:51) D-Dimer (07/21/17 02:51) Magnesium (Mg) (07/21/17 02:51) Prothrombin Time / Inr (Pt) (07/21/17 02:51) Act Partial Throm Time (Ptt) (07/21/17 02:51) Troponin I (07/21/17 02:51) Lipase (07/21/17 02:51) Chest, Single Ap (07/21/17 02:51) Ecg Monitoring (07/21/17 02:51) Bilateral Bp Monitoring (07/21/17 02:51) Iv Access Insert/Monitor (07/21/17 02:51) Oximetry (07/21/17 02:51) Oxygen Administration (07/21/17 02:51) Sodium Chloride 0.9% Flush (Ns Flush) (07/21/17 03:00) Ed Urine Pregnancytest Poc (07/21/17 02:51) CKMB (07/21/17 03:00) CKMB% (07/21/17 03:00) Ketorolac Inj (Toradol Inj) (07/21/17 04:45) Ct Pulmonary Angiogram (07/21/17 ) Iohexol 350 Inj (Omnipaque 350 Inj) (07/21/17 05:56) Labs Laboratory Tests Test 07/21/17 03:00 White Blood Count 7.7 TH/MM3 Red Blood Count 5.03 MIL/MM3 Hemoglobin 12.4 GM/DL Hematocrit 37.9 % Mean Corpuscular Volume 75.3 FL Mean Corpuscular Hemoglobin 24.7 PG Mean Corpuscular Hemoglobin Concent 32.8 % Red Cell Distribution Width 15.7 % Platelet Count 169 TH/MM3 Mean Platelet Volume 8.6 FL Neutrophils (%) (Auto) 65.9 % Lymphocytes (%) (Auto) 26.3 % Monocytes (%) (Auto) 5.5 % Eosinophils (%) (Auto) 1.6 % Basophils (%) (Auto) 0.7 % Neutrophils # (Auto) 5.1 TH/MM3 Lymphocytes # (Auto) 2.0 TH/MM3 Monocytes # (Auto) 0.4 TH/MM3 Eosinophils # (Auto) 0.1 TH/MM3 Basophils # (Auto) 0.1 TH/MM3 CBC Comment DIFF FINAL Differential Comment Prothrombin Time 10.2 SEC Prothromb Time International Ratio 1.0 RATIO Activated Partial Thromboplast Time 24.1 SEC D-Dimer Quantitative (PE/DVT) 0.40 MG/L FEU Blood Urea Nitrogen 11 MG/DL Creatinine 0.78 MG/DL Random Glucose 89 MG/DL Calcium Level 7.7 MG/DL Magnesium Level 1.9 MG/DL Sodium Level 140 MEQ/L Potassium Level 3.6 MEQ/L Chloride Level 106 MEQ/L Carbon Dioxide Level 27.9 MEQ/L Anion Gap 6 MEQ/L Estimat Glomerular Filtration Rate 101 ML/MIN Total Creatine Kinase 159 U/L Creatine Kinase MB 1.0 NG/ML Troponin I 0.03 NG/ML Lipase 194 U/L [facility] Medical Decision Making Medical Screen Exam Complete: Yes Emergency Medical Condition: Yes Medical Record Reviewed: Yes Interpretation(s) EKG: Normal sinus rhythm rate [address] elevation injury pattern or ectopy normal axis and intervals present CT pulmonary angiogram: CONCLUSION: 1. No evidence of pulmonary embolus. Timing of contrast bolus limits evaluation of the subsegmental branches. 2. Bilateral lower lobe atelectasis versus mild pulmonary edema. 3. Postsurgical findings in the region of the stomach. Marcus Vogel MD on July 21, 2017 at 6:03 Board Certified Radiologist. This report was verified electronically. CBC & BMP Diagram 07/21/17 03:00 Calcium Level 7.7 L, Magnesium Level 1.9 Vital Signs Date Time Temp Pulse Resp B/P (MAP) Pulse Ox O2 Delivery O2 Flow Rate FiO2 07/21/17 06:08 20 07/21/17 04:39 88 18 156/96 (116) 98 Room Air 07/21/17 02:54 100 Room Air 07/21/17 02:54 18 100 Room Air 07/21/17 01:59 98.4 76 16 176/100 (125) 99 Room Air D-dimer: 0.4, not elevated POC hCG: Negative Troponin I 0.03, not elevated; CK: 159, not elevated Differential Diagnosis Chest pain, pleurisy, pneumothorax, PE, atypical chest pain, ACS, IN, dissection , choledocholithiasis, cholecystitis, pancreatitis, gastritis, peptic ulcer disease Narrative Course Patient placed on telemetry monitor IV access obtained EKG performed shows sinus rhythm without acute injury pattern normal axis and intervals are noted; patient kept nothing by mouth Patient resting comfortably although has reproducible pain upon deep inspiratory effort; troponin I is 0.03, not elevated d-dimer is 0.40, not elevated chest x-ray shows poor inspiratory effort consistent with pleuritic chest pain EKG shows no acute injury pattern change. Patient unwilling to take aspirin as she states it makes her O2 sat however is able to take ibuprofen will therefore administered a one-time dose of Toradol 30 mg IV and check affect for response to anti-inflammatory for pruritic inflammatory type pain. Patient reports pain slightly improved after receiving IV Toradol but continues to grimace with marked pain feeling short of breath on inspiratory effort only and heart rate increases to over 100 therefore even though d-dimer is negative will proceed with CT pulmonary angiogram to rule out PE; no ripping tearing midscapular pain initial BP has decreased to 156/96. Patient has returned from CT imaging and reports that she feels significantly improved; imaging results pending; anticipate patient will be stable for outpatient management unless CT imaging shows acute abnormality. Patient is informed CT imaging study reveals no evidence for pulmonary embolism. Room air O2 saturation remained 98 100% on room air and no orthopnea or PND. Lung sounds are clear to auscultation without rales. Patient is stable for outpatient management and follow-up with her primary care provider. Diagnosis Primary Impression: Pleuritic chest pain Referrals: Primary Care Physician 2 days Patient Instructions: General Instructions Additional Instructions: Increase fluid hydration Take pain medication as prescribed as Follow-up with your primary care provider Return to the emergency department for any concerns or change in condition Med/Other Pt SpecificInfo: Prescription(s) given Scripts Albuterol 18 GM Inh (Ventolin Hfa 18 GM Inh) 90 Mcg/Act Aer 2 PUFF INH Q4-6H Y for SHORTNESS OF BREATH, #1 INHALER 0 Refills Prov: Unique Aponte MD 07/21/17 Tramadol (Tramadol) 50 Mg Tab 50 MG PO Q6H Y for PAIN, #7 TAB 0 Refills Prov: Unique Aponte MD 07/21/17 Disposition: 01 DISCHARGE HOME Condition: Stable Unique Aponte MD Jul 21, 2017 02:54
[2017-07-21] MEDS ORDERED: SODIUM CHLORIDE 0.9% FLUSH 10 ML FLUSH IVF PRN (03:00)
[2017-07-21 03:13] LABS: AUTOMATED NEUTROPHIL # 5.1 TH/MM3 (1.8-7.7); BASOPHIL # 0.1 TH/MM3 (0-0.2); BASOPHIL % 0.7 % (0.0-2.0); EOSINOPHIL # 0.1 TH/MM3 (0-0.4); EOSINOPHIL % 1.6 % (0.0-4.0); HEMATOCRIT 37.9 % (35.0-46.0); HEMOGLOBIN 12.4 GM/DL (11.6-15.3); LYMPH % 26.3 % (9.0-44.0); MEAN CELL VOLUME 75.3 FL (80.0-100.0); MEAN CORPUSCULAR HEMOGLOBIN 24.7 PG (27.0-34.0); MEAN CORPUSCULAR HGB CONC 32.8 % (32.0-36.0); MEAN PLATELET VOLUME 8.6 FL (7.0-11.0); MONO % 5.5 % (0.0-8.0); MONOCYTE # 0.4 TH/MM3 (0-0.9); NEUT % 65.9 % (16.0-70.0); PLATELET COUNT 169 TH/MM3 (150-450); RED BLOOD COUNT 5.03 MIL/MM3 (4.00-5.30); RED CELL DISTRIBUTION WIDTH 15.7 % (11.6-17.2); WHITE BLOOD COUNT 7.7 TH/MM3 (4.0-11.0)
[2017-07-21 03:28] LABS: BICARBONATE 27.9 MEQ/L (21.0-32.0); BLOOD UREA NITROGEN 11 MG/DL (7-18); CALCIUM 7.7 MG/DL (8.5-10.1); CHLORIDE 106 MEQ/L (98-107); CREATININE 0.78 MG/DL (0.50-1.00); GLOMERULAR FILTRATION RATE 101 ML/MIN (>89); GLUCOSE,RANDOM 89 MG/DL (74-106); LIPASE 194 U/L (73-393); MAGNESIUM 1.9 MG/DL (1.5-2.5); SODIUM (NA) 140 MEQ/L (136-145)
[2017-07-21 03:32] LABS: TROPONIN I 0.03 NG/ML (0.02-0.05)
--- NOTE | 2017-07-21 03:32 | RADRPT ---
EXAM DATE/TIME: 07/21/2017 03:05 [facility] COMPARISON: CHEST SINGLE AP, February 05, 2017, 10:00. INDICATIONS : Sudden onset chest pain MEDICAL HISTORY : Hypertension. SURGICAL HISTORY : Gastric bypass. ENCOUNTER: Initial ACUITY: 1 day PAIN SCORE: 7/10 LOCATION: Bilateral chest FINDINGS: Single AP view of the chest. Lung volumes are low. The lungs are clear. Cardiomediastinal silhouette within normal limits. No evidence of pleural effusion or pneumothorax. CONCLUSION: Low lung volumes. No acute cardiopulmonary disease identified. Marcus Vogel MD on July 21, 2017 at 3:30 Board Certified Radiologist. This report was verified electronically.
[2017-07-21 03:51] LABS: PROTHROMBIN TIME - PATIENT 10.2 SEC (9.8-11.6)
[2017-07-21 03:59] LABS: D-DIMER 0.4 MG/L FEU (0.00-0.50)
[2017-07-21 04:39] VITALS: BP 156/96; PULSE 88; RESP 18; O2SAT 98
[2017-07-21] MEDS ORDERED: KETOROLAC TROMETHAMINE 30 MG/ML (IVP) VIAL IV PUSH ONE (04:45)
[2017-07-21] MEDS ORDERED: IOHEXOL 350 MG/ML 10 ML VIAL (for RAD DIAG) IVCONTRAST ONE (05:56)
[2017-07-21 06:08] VITALS: RESP 20
--- NOTE | 2017-07-21 06:13 | RADRPT ---
EXAM DATE/TIME: 07/21/2017 05:46 [facility] COMPARISON: CT PULMONARY ANGIOGRAM, February 05, 2016, 18:55. INDICATIONS : Shortness of breath and chest pain. IV CONTRAST: 75 cc Omnipaque 350 (iohexol) IV RADIATION DOSE: 25.64 CTDIvol (mGy) MEDICAL HISTORY : None SURGICAL HISTORY : None. ENCOUNTER: Initial ACUITY: 1 day PAIN SCALE: 5/10 LOCATION: chest TECHNIQUE: Volumetric scanning of the chest was performed using a pulmonary embolism protocol MIP images were re constructed. Using automated exposure control and adjustment of the mA and/or kV according to patien t size, radiation dose was kept as low as reasonably achievable to obtain optimal diagnostic quality images. DICOM format image data is available electronically for review and comparison. Follow-up recommendations for detected pulmonary nodules are based at a minimum on nodule size and pa tient risk factors according to Fleischner Society Guidelines. FINDINGS: PULMONARY ARTERIES: Opacification of the pulmonary arteries is approximately equal to the aorta. No pulmonary embolus manuel ntified. Evaluation of the subsegmental branches is limited on this study do to timing of the contras t bolus. LUNGS: Dependent lower lobe groundglass opacity and mild lower lobe perihilar groundglass opacity indicating atelectasis versus mild pulmonary edema. The lungs are otherwise clear. PLEURAE: There is no pleural thickening or pleural effusion. MEDIASTINUM: There is good visualization of the great vessels of the middle mediastinum. No evidence of mediastin al or hilar adenopathy/mass. MUSCULOSKELETAL: Within normal limits for patient age. MISCELLANEOUS: Postsurgical findings in the left upper quadrant of the abdomen involving the stomach and proximal sm all bowel. CONCLUSION: 1. No evidence of pulmonary embolus. Timing of contrast bolus limits evaluation of the subsegmental b ranches. 2. Bilateral lower lobe atelectasis versus mild pulmonary edema. 3. Postsurgical findings in the region of the stomach. Marcus Vogel MD on July 21, 2017 at 6:03 Board Certified Radiologist. This report was verified electronically.
[2017-07-21] MEDS ORDERED: TRAM50TA PO (06:22)
[2017-07-21] MEDS ORDERED: VENTAER INH (06:22)
--- NOTE | 2017-07-21 13:23 | EKG ---
Date Performed: 07/21/2017 Time Performed: 02:16:46 PTAGE: 37 years EKG: Sinus rhythm NORMAL ECG Compared to PREVIOUS TRACING , heart rate is slower, otherwise, no significant change. PREVIOUS DANA N02/05/2017 09.52 DOCTOR: Saeed Nunn Interpretating Date/Time 07/21/2017 13:22:19
== END 2017-07-21 06:38 | disposition home or self-care (01) ==
LOC: NEPC 01:58
DX: R07.81 Pleurodynia (principal); I10 Essential (primary) hypertension
CPT/HCPCS: 71045; 71275; 80048; 82550; 82552; 83690; 83735; 84484; 84703; 85025; 85379; 85610; 85730; 93005; 96374; 99285; J1885; Q9967

== ENCOUNTER 2017-12-01 04:19 | Emergency (ER) | payer MEDICAID ==
[~2017-12-01] VITALS: Ht 167.6 cm; Wt 97.5 kg
[~2017-12-01 04:19] MED LIST changes: +TRAM50TA PO; +VENTAER INH
[2017-12-01 04:25] VITALS: BP 171/93; PULSE 60; RESP 17; TEMP 98; O2SAT 99
[2017-12-01] MEDS ORDERED: ERYTOIN10 RIGHT EYE (04:41)
--- NOTE | 2017-12-01 04:41 | PD ---
HPI Chief Complaint: Eye Problems/Injury Time Seen by Provider: 04:39 Travel History International Travel<30 days: No Contact w/Intl Traveler<30days: No Traveled to known affect area: No History of Present Illness HPI Patient is a 37-year-old female presenting to emerge from for evaluation of right upper eyelid pain. Patient states started yesterday getting progressively more sore. She denies any visual changes but states her eye has been tearing. There is been no purulent drainage noted. Symptom onset was gradual, symptoms are mild in nature. Patient is concerned for pinkeye. PFSH Past Medical History High Cholesterol: Yes Chest Pain: Yes (chest pain from gi disturbance) Gastrointestinal Disorders: Yes (GALL STONES, KIDNEY STONES) Hypertension: Yes Immunizations Current: Yes ?: Not LMP: 11/13/17 : 1 Para: 1 Past Surgical History Abdominal Surgery: Yes (GASTRIC BYPASS-NOVEMBER 2008) Section: Yes (X 2) Social History Alcohol Use: No Tobacco Use: No Substance Use: No Allergies-Medications (Allergen,Severity, Reaction): Coded Allergies: aspirin (Unverified Adverse Reaction, Severe, CAN'T TAKE BECAUSE GASTRIC BYPASS, 07/21/17) STATES SHE CAN'T TAKE ASPIRIN SINCE SHE HAD GASTRIC BYPASS IN 2008. *MDRO Multi-Drug Resistant Organism (Verified Adverse Reaction, Unknown, ) MRSA Reported Meds & Prescriptions Reported Meds & Active Scripts Active Erythromycin Opth Oint 5 Mg/Gm Oint 1 Applic RIGHT EYE QID Ventolin Hfa 18 GM Inh (Albuterol Sulfate) 90 Mcg/Act Aer 2 Puff INH Q4-6H PRN Tramadol (Tramadol HCl) 50 Mg Tab 50 Mg PO Q6H PRN Ondansetron (Ondansetron HCl) 8 Mg Tab 8 Mg PO TID Reported Plus Iron 29-1 mg ( Vit-Iron Carbonyl) 1 Tab Tab 1 Tab PO DAILY Review of Systems Except as stated in HPI: all other systems reviewed are Neg Eyes: Positive: Other (Eyelid edema) Physical Exam Narrative GENERAL: Well-developed, well-nourished, alert female. Presenting in no acute distress. SKIN: Warm and dry. HEAD: Normocephalic. EYES: No scleral icterus. No injection or drainage. Right upper eyelid with a stye to the lateral aspect. NECK: Supple, trachea midline. No JVD or lymphadenopathy. CARDIOVASCULAR: Regular rate and rhythm without murmurs, gallops, or rubs. RESPIRATORY: Breath sounds equal bilaterally. No accessory muscle use. GASTROINTESTINAL: Abdomen soft, non-tender, nondistended. MUSCULOSKELETAL: No cyanosis, or edema. BACK: Nontender without obvious deformity. No CVA tenderness. Data Data Last Documented VS Vital Signs Date Time Temp Pulse Resp B/P (MAP) Pulse Ox O2 Delivery O2 Flow Rate FiO2 12/01/17 04:49 12/01/17 04:25 98.0 60 17 99 Room Air Orders Orders Ed Discharge Order (12/01/17 04:41) MDM Medical Decision Making Medical Screen Exam Complete: Yes Emergency Medical Condition: Yes Interpretation(s) Vital Signs Date Time Temp Pulse Resp B/P (MAP) Pulse Ox O2 Delivery O2 Flow Rate FiO2 12/01/17 04:49 12/01/17 04:25 98.0 60 17 171/93 (119) 99 Room Air Differential Diagnosis Conjunctivitis versus stye versus cellulitis versus other Narrative Course Patient is a well-appearing 37-year-old female presenting for evaluation of right upper eyelid pain and swelling. Physical exam is consistent with a stye. Patient was encouraged to apply warm compresses to the affected area. She was reassured that symptoms would resolve with conservative management. She was given a prescription for erythromycin ointment if needed. Patient was encouraged to follow-up with a primary doctor with an breastfeeding program coordinator. Patient verbalized understanding of instructions. Patient stable for discharge. Diagnosis Primary Impression: Hordeolum externum (stye) Qualified Codes: H00.011 - Hordeolum externum right upper eyelid Referrals: Supervisor Dyer Patient Instructions: General Instructions Additional Instructions: Apply warm compress to the affected area Return to emergency department for any new or worsening symptoms Follow-up with an breastfeeding program coordinator if necessary Med/Other Pt SpecificInfo: Prescription(s) given Scripts Erythromycin Opth Oint (Erythromycin Opth Oint) 5 Mg/Gm Oint 1 APPLIC RIGHT EYE QID for Infection, #1 TUBE 0 Refills Prov: Yolis Leon 12/01/17 Disposition: 01 DISCHARGE HOME Condition: Stable Yolis Leon December 01, 2017 04:41
== END 2017-12-01 04:58 | disposition home or self-care (01) ==
LOC: NEPD 04:19
DX: H00.011 Hordeolum externum right upper eyelid (principal); I10 Essential (primary) hypertension
CPT/HCPCS: 99283